=== PATIENT | female | born 1935 | race Hispanic/Latino ===

== ENCOUNTER 2017-04-29 12:01 | Outpatient (CLI) | payer MEDICARE ==
--- NOTE | 2017-04-29 13:07 | Cat Scan Report ---
CT HEAD WITHOUT CONTRAST: HISTORY: Headache. Compared to 01/01/13. Mild central volume loss is evident and is unchanged. Mild chronic periventricular white matter changes are noted. There is no evidence for hemorrhage, mass, extra-axial fluid collection or large area of acute ischemia. Ventricular size remains slightly prominent but symmetric. The basal cisterns are clear. The posterior fossa and contents are within normal limits. The mastoid air cells and visualized portions of the sinuses are normal. IMPRESSION: Mild volume loss and chronic white matter changes. No significant change since 2012.
== END 2017-04-29 12:02 | disposition home or self-care (01) ==
LOC: CT 12:01
PROVIDERS: ATTEND Internal Medicine
DX: R51 Headache (principal)
CPT/HCPCS: 70450

== ENCOUNTER 2017-06-19 15:33 | Emergency (ER) | payer MEDICARE ==
[2017-06-19 17:16] LABS: Basophils % (Auto) 0.8 % (0.0-1.8); Eosinophils % (Auto) 1.3 % (0.0-4.3); Hematocrit 38.2 % (30.3-42.9); Hemoglobin 12.9 gm/dl (10.1-14.3); Mean Corpuscular HGB Conc 34 % (30-34); Mean Corpuscular Hemoglobin 30 pg (28-32); Mean Corpuscular Volume 89 fl (79-97); Platelet Count 217 K/mm3 (140-440); Red Blood Count 4.29 M/mm3 (3.65-5.03)
[2017-06-19 17:28] LABS: Bilirubin,Urine NEG (Negative); Blood,Urine SM (Negative); Ketones,Urine NEG (Negative); Leukocyte Esterase,Urine NEG (Negative); Nitrite,Urine NEG (Negative); Protein,Urine <15 mg/dL mg/dL (Negative); Urobilinogen,Urine < 2.0 mg/dL (<2.0)
[2017-06-19 17:35] LABS: Alanine Aminotransferase 10 units/L (7-56); Albumin 3.9 g/dL (3.9-5); Albumin/Globulin Ratio 1.6 %; Alkaline Phosphatase 52 units/L (35-129); Anion Gap 18 mmol/L; BUN/Creatinine Ratio 11; Blood Urea Nitrogen 8 mg/dL (7-17); Calcium 8.6 mg/dL (8.4-10.2); Carbon Dioxide 23 mmol/L (22-30); Chloride 97.2 mmol/L (98-107); Glucose 90 mg/dL (65-100); Lipase 27 units/L (13-60); Potassium 4.1 mmol/L (3.6-5.0); Sodium 134 mmol/L (137-145); Total Protein 6.3 g/dL (6.3-8.2)
--- NOTE | 2017-06-19 18:02 | XRay Report ---
FINAL REPORT EXAM: XR ABDOMEN 2V HISTORY: Abd pain, constipation TECHNIQUE: Abdomen supine and upright PRIORS: None. FINDINGS: There is moderately increased amount of stool throughout the colon. No evidence of small bowel distention. No signs of free air. No abnormal calcifications are identified. IMPRESSION: Increased amount of stool throughout the colon No additional abnormality seen.
[2017-06-19] MEDS ORDERED: NACL ONE (18:26)
--- NOTE | 2017-06-19 18:52 | Emergency Department Report ---
HPI - General Chief Complaint: Abdominal Pain Time Seen by Provider: 06/19/17 16:15 - HPI HPI: This is a 81-year-old female presents to the emergency department with a complaint of concern for constipation and some mild abdominal discomfort. She has a more remote history of a previous bowel resection secondary to diverticulitis with subsequent colostomy reversal and anastomosis. The patient says that she has not had a satiating bowel movement in the past 7 -8 days despite using some laxatives and stool softeners. She denies any fever , dysuria, vaginal bleeding, back pain, vaginal discharge, nausea or vomiting. No recent travel or sick contacts at home. Patient lives at home alone. Her primary care physician is Dr. Carrera but she has not seen him regarding her symptoms. ED Past Medical Hx - Past Medical History Previous Medical History?: Yes Hx Hypertension: Yes - Surgical History Additional Surgical History: bowel resection with partial colon removal, colostomy placement and reversal - Social History Smoking Status: Never Smoker Substance Use Type: None - Medications Home Medications: Home Medications Medication Instructions Recorded Confirmed Last Taken Type Docusate Sodium [Colace] 100 mg PO BID PRN #20 capsule 06/19/17 Unknown Rx Magnesium Citrate [Citrate of 300 ml PO NOW #1 bottle 06/19/17 Unknown Rx Magnesia] ED Review of Systems ROS: Stated complaint: CONSTIPATION Other details as noted in HPI Comment: All other systems reviewed and negative Constitutional: denies: chills, fever Eyes: denies: eye pain, eye discharge, vision change ENT: denies: ear pain, throat pain Respiratory: denies: cough, shortness of breath, wheezing Cardiovascular: denies: chest pain, palpitations Gastrointestinal: abdominal pain, constipation. denies: nausea, vomiting Genitourinary: denies: urgency, dysuria, discharge Musculoskeletal: denies: back pain, joint swelling, arthralgia Skin: denies: rash, lesions Neurological: denies: headache, weakness, paresthesias Physical Exam - Physical Exam Vital Signs: Vital Signs 06/19/17 16:17 Temperature 99.1 F Pulse Rate 69 Blood Pressure 164/66 O2 Sat by Pulse 98 Oximetry Physical Exam: GENERAL: The patient is well-developed well-nourished. HENT: Normocephalic. Atraumatic. Patient has moist mucous membranes. EYES: Extraocular motions are intact. Pupils equal reactive to light bilaterally. NECK: Supple. Trachea is midline. CHEST/LUNGS: Clear to auscultation. There is no respiratory distress noted. HEART/CARDIOVASCULAR: Regular. There is no tachycardia. There is no gallop rub or murmur. ABDOMEN: Abdomen is soft. Mild generalized tenderness to palpation. No guarding or rebound tenderness. Patient has normal bowel sounds. SKIN: There is no rash. There is no edema. There is no diaphoresis. NEURO: The patient is awake, alert. The patient is cooperative. The patient has no focal neurologic deficits. The patient has normal speech. MUSCULOSKELETAL: There is no tenderness or deformity. There is no limitation range of motion. There is no evidence of acute injury. ED Course Vital Signs 06/19/17 16:17 Temperature 99.1 F Pulse Rate 69 Blood Pressure 164/66 O2 Sat by Pulse 98 Oximetry ED Medical Decision Making - Lab Data Result diagrams: 06/19/17 16:41 06/19/17 16:41 - Radiology Data Radiology results: report reviewed, image reviewed interpreted by me: Abdominal x-ray shows a moderate to large amount of stool throughout the intestines. No obvious signs of obstruction. PROCEDURE: CT ABDOMEN PELVIS W CON TECHNIQUE: Computerized axial tomography of the abdomen and pelvis was performed after the IV injection of iodinated nonionic contrast. HISTORY: Abd pain constipation COMPARISON: X-ray from same day FINDINGS: Mild hypoventilatory changes are suspect in the lower lungs. Liver and spleen display no abnormalities. Gallbladder has mild increased density that may be from excretion of contrast from prior study. It could be sludge. There is a 1 cm low-density structure with possible rim calcifications associated with the neck of the gallbladder. Is uncertain if this is in the gallbladder or adjacent to the gallbladder. No biliary ductal dilation is seen. Pancreas appears normal. Adrenal glands are normal in size. Minimal prominence of the distal abdominal aorta is seen measuring 2.1 cm in diameter. Small benign appearing cysts are suspected in the kidneys. Bladder appears normal. 2.4 cm calcified uterine fibroid is seen in the fundus of the uterus. Rectum is dilated to 7 cm with soft fecal material. Prominent constipation is seen in the ascending and transverse colon. No fecal impaction is seen. Normal appendix is seen. Shotty reactive lymph nodes are seen in the mesentery and retroperitoneum. No adnexal masses are seen. There is a wide neck right paraumbilical hernia containing fat. It is bilobed. Mild central compression deformity of L5 is less than 10 percent loss of height. This could be new or old. IMPRESSION: Prominent constipation is seen without fecal impaction. Periumbilical hernia are seen containing fat. Gallbladder appears mildly dense. This may be from excretion of contrast from prior study or sludge. 1 cm rim calcified, low-density structure is seen near the neck of the gallbladder. It is uncertain if this is within the gallbladder or adjacent to the gallbladder. Correlation with right upper quadrant ultrasound may be useful. Mild compression deformity of L5 may be new or old. Transcribed By: DEEPAK Dictated By: TERESSA KUMAR JR, MD Electronically Authenticated By: TERESSA KUMAR JR, MD Signed Date/Time: 06/19/17 1611 PROCEDURE: US ABDOMEN LIMITED TECHNIQUE: Real-time sonography was performed of the right upper quadrant of the abdomen with image documentation. CPT 43385 HISTORY: RUQ, abnormal CT COMPARISON: CT exam from the same day FINDINGS: Limited views of the pancreas display no abnormalities. Right kidney measures 11.3 cm in length and displays no abnormalities. No hepatic abnormality is seen. Gallbladder appears normal. Common bile duct is normal in size. IMPRESSION: No abnormalities are seen. 1 cm low-density structure near the neck of the gallbladder may be an exophytic cyst from the liver. This suspected calcification in the wall may be from adjacent vessel. Transcribed By: DEEPAK Dictated By: TERESSA KUMAR JR, MD Electronically Authenticated By: TERESSA KUMAR JR, MD Signed Date/Time: 06/19/17 1707 - Medical Decision Making 81-year-old female presents with some constipation and some generalized abdominal pain. She had not had a bowel movement in about 7 or 8 days. Labs were mostly unremarkable. Abdominal x-ray showed a large amount of stool throughout the intestine but no obvious signs of obstruction. A CT scan was done secondary to her age and complaint and it showed some increased stool volume without fecal impaction or obstruction. There was some mention of possible pericholecystic fluid without any obvious stone or signs of cholecystitis. However to be sure, an ultrasound was done of the right upper quadrant that did not show any obvious cholelithiasis and certainly no cholecystitis. She was given a soapsuds enema and had a moderate bowel movement with some relief. She will go home with some stool softeners and laxative encouragement to follow-up with her primary care physician. She will return to the ER with any worsening of her symptoms or any acute distress. - Differential Diagnosis constipation, bowel obstruction, diverticulitis, malignancy Critical Care Time: No Critical care attestation.: If time is entered above; I have spent that time in minutes in the direct care of this critically ill patient, excluding procedure time. ED Disposition Clinical Impression: Increased stool volume Abdominal pain Qualifiers: Abdominal location: unspecified location Qualified Code(s): R10.9 - Unspecified abdominal pain Disposition: TO HOME OR SELFCARE Is pt being admited?: No Condition: Stable Instructions: Constipation (ED), Abdominal Pain (ED) Additional Instructions: Please follow-up with your primary care physician in the next few days. Increase your oral rehydration. Take the constipation meds as prescribed. Return to the emergency Department with any worsening of your symptoms or any acute distress. Prescriptions: Docusate Sodium [Colace] 100 mg PO BID PRN #20 capsule PRN Reason: Constipation Magnesium Citrate [Citrate of Magnesia] 300 ml PO NOW #1 bottle Referrals: PRIMARY CARE, [Primary Care Provider] - [facility] Time of Disposition: 20:16
[2017-06-19 19:59] VITALS: BP 140/80
--- NOTE | 2017-06-19 20:15 | Cat Scan Report ---
FINAL REPORT PROCEDURE: CT ABDOMEN PELVIS W CON TECHNIQUE: Computerized axial tomography of the abdomen and pelvis was performed after the IV injection of iodinated nonionic contrast. HISTORY: Abd pain constipation COMPARISON: X-ray from same day FINDINGS: Mild hypoventilatory changes are suspect in the lower lungs. Liver and spleen display no abnormalities. Gallbladder has mild increased density that may be from excretion of contrast from prior study. It could be sludge. There is a 1 cm low-density structure with possible rim calcifications associated with the neck of the gallbladder. Is uncertain if this is in the gallbladder or adjacent to the gallbladder. No biliary ductal dilation is seen. Pancreas appears normal. Adrenal glands are normal in size. Minimal prominence of the distal abdominal aorta is seen measuring 2.1 cm in diameter. Small benign appearing cysts are suspected in the kidneys. Bladder appears normal. 2.4 cm calcified uterine fibroid is seen in the fundus of the uterus. Rectum is dilated to 7 cm with soft fecal material. Prominent constipation is seen in the ascending and transverse colon. No fecal impaction is seen. Normal appendix is seen. Shotty reactive lymph nodes are seen in the mesentery and retroperitoneum. No adnexal masses are seen. There is a wide neck right paraumbilical hernia containing fat. It is bilobed. Mild central compression deformity of L5 is less than 10 percent loss of height. This could be new or old. IMPRESSION: Prominent constipation is seen without fecal impaction. Periumbilical hernia are seen containing fat. Gallbladder appears mildly dense. This may be from excretion of contrast from prior study or sludge. 1 cm rim calcified, low-density structure is seen near the neck of the gallbladder. It is uncertain if this is within the gallbladder or adjacent to the gallbladder. Correlation with right upper quadrant ultrasound may be useful. Mild compression deformity of L5 may be new or old.
--- NOTE | 2017-06-19 21:17 | Ultrasound Report ---
FINAL REPORT PROCEDURE: US ABDOMEN LIMITED TECHNIQUE: Real-time sonography was performed of the right upper quadrant of the abdomen with image documentation. CPT 26372 HISTORY: RUQ, abnormal CT COMPARISON: CT exam from the same day FINDINGS: Limited views of the pancreas display no abnormalities. Right kidney measures 11.3 cm in length and displays no abnormalities. No hepatic abnormality is seen. Gallbladder appears normal. Common bile duct is normal in size. IMPRESSION: No abnormalities are seen. 1 cm low-density structure near the neck of the gallbladder may be an exophytic cyst from the liver. This suspected calcification in the wall may be from adjacent vessel.
== END 2017-06-19 22:06 | disposition home or self-care (01) ==
LOC: ED 15:33
DX: R19.5 Other fecal abnormalities (principal); I10 Essential (primary) hypertension; Z90.49 Acquired absence of other specified parts of digestive tract; Z88.8 Allergy status to other drugs, medicaments and biological substances
CPT/HCPCS: 36415; 74020; 74177; 76705; 80053; 81001; 83690; 85025; 99285; Q9967

== ENCOUNTER 2017-06-23 06:31 | Inpatient (IN) | payer MEDICARE ==
[2017-06-23] MEDS ORDERED: NACL 0.9% 500 ML 500 ML IV ONE (07:35)
--- NOTE | 2017-06-23 08:18 | XRay Report ---
AP CHEST: HISTORY: Sepsis AP view of the chest demonstrates a normal mediastinal and cardiac contour with clear lungs and normal bony and soft tissue structures. IMPRESSION: Unremarkable AP chest.
[2017-06-23 08:24] LABS: Basophils % (Auto) 0.8 % (0.0-1.8); Eosinophils % (Auto) 0.1 % (0.0-4.3); Hematocrit 39.4 % (30.3-42.9); Hemoglobin 13.2 gm/dl (10.1-14.3); Mean Corpuscular HGB Conc 33 % (30-34); Mean Corpuscular Hemoglobin 29 pg (28-32); Mean Corpuscular Volume 87 fl (79-97); Platelet Count 212 K/mm3 (140-440); Red Blood Count 4.54 M/mm3 (3.65-5.03); White Blood Count 8.1 K/mm3 (4.5-11.0)
[2017-06-23 08:26] LABS: Bilirubin,Urine NEG (Negative); Blood,Urine NEG (Negative); Ketones,Urine NEG (Negative); Leukocyte Esterase,Urine NEG (Negative); Mucus,Urine FEW /HPF; Nitrite,Urine NEG (Negative); Protein,Urine <15 mg/dL mg/dL (Negative); Urobilinogen,Urine < 2.0 mg/dL (<2.0)
[2017-06-23 08:34] LABS: INR 1.03 (0.87-1.13)
[2017-06-23 08:35] LABS: Partial Thromboplastin Time 27.6 Sec. (24.2-36.6)
[2017-06-23 08:38] LABS: Creatine Kinase MB 2.7 ng/mL (0.0-4.0)
[2017-06-23 08:40] LABS: Alanine Aminotransferase 16 units/L (7-56); Albumin 3.5 g/dL (3.9-5); Albumin/Globulin Ratio 1.2 %; Alkaline Phosphatase 47 units/L (35-129); Anion Gap 19 mmol/L; BUN/Creatinine Ratio 14; Bilirubin,Direct 0.2 mg/dL (0-0.2); Bilirubin,Indirect 0.5 mg/dL; Blood Urea Nitrogen 11 mg/dL (7-17); Calcium 8.5 mg/dL (8.4-10.2); Carbon Dioxide 24 mmol/L (22-30); Chloride 92.6 mmol/L (98-107); Creatine Kinase 291 units/L (30-135); Glucose 101 mg/dL (65-100); Potassium 4.2 mmol/L (3.6-5.0); Sodium 131 mmol/L (137-145); Total Protein 6.5 g/dL (6.3-8.2)
--- NOTE | 2017-06-23 08:44 | Cat Scan Report ---
CT HEAD WITHOUT CONTRAST: HISTORY: head trauma. TECHNIQUE: Sequential CT images without contrast. FINDINGS: Images obtained show bilateral prominence of the sulci and ventricles. There are no abnormal intra- or extra-axial blood or fluid collections. There are no focal masses or evidence of mass effect. The guzman white matter differentiation appears within normal limits. Regions of periventricular decreased attenuation are consistent with microangiopathic ischemic disease. The posterior fossa structures including the fourth ventricle, cerebellum, and brainstem appear normal. IMPRESSION: Evidence of atrophy and microangiopathic ischemic disease. No acute intracranial process noted. No change since 04/29/17.
--- NOTE | 2017-06-23 08:49 | Cat Scan Report ---
CT SCAN OF THE CERVICAL SPINE: HISTORY: Fall, pain. TECHNIQUE: Contiguous 1.25 mm axial images of the cervical spine were obtained. Sagittal and coronal reformatted images. FINDINGS: There is normal alignment of the cervical spine. The body, pedicles and posterior ligaments appear normal. No evidence of fracture or subluxation is seen. Minimal degenerative disc disease and facet arthropathy are noted at all levels. The spinal canal appears normal. The prevertebral soft tissues appear normal. IMPRESSION: Mild cervical spondylosis. No acute process is noted.
[2017-06-23] MEDS ORDERED: NACL 0.9% 1000 ML 1,000 ML IV ONE (09:34)
[2017-06-23] MEDS ORDERED: NORCO 5/325 PO ONE (09:34)
--- NOTE | 2017-06-23 09:34 | Emergency Department Report ---
ED General Adult HPI - General Chief complaint: Fall Stated complaint: FALL Time Seen by Provider: 06/23/17 07:33 Source: patient, family, EMS Mode of arrival: Stretcher Limitations: Physical Limitation - History of Present Illness Initial comments: Patient complains of generalized malaise and weakness and perhaps flulike prodrome for the past 2 days. She states that she did have a flu shot. She has not been coughing. She doesn't complain of chest or abdominal pain. She's had some sore throat and some generalized achiness. She states that she was going to the bathroom when she got weak and passed out. She has the back of her head and also complains of neck pain and some shoulder discomfort. She believes that she lost consciousness for approximately 3 minutes. She has returned to her baseline now. She presents with her daughter. -: Sudden, minutes(s) Location: head, neck Radiation: non-radiation Quality: aching Consistency: intermittent Improves with: none Worsens with: none Associated Symptoms: denies other symptoms, weakness Treatments Prior to Arrival: none - Related Data Previous Rx's Medication Instructions Recorded Last Taken Type Docusate Sodium [Colace] 100 mg PO BID PRN #20 capsule 06/19/17 Unknown Rx Magnesium Citrate [Citrate of 300 ml PO NOW #1 bottle 06/19/17 Unknown Rx Magnesia] Allergies Allergy/AdvReac Type Severity Reaction Status Date / Time lorazepam [From Ativan] Allergy Unknown Unknown Verified 06/19/17 16:48 ED Review of Systems ROS: Stated complaint: FALL Other details as noted in HPI Constitutional: weakness. denies: chills, fever Eyes: denies: eye pain, eye discharge, vision change ENT: denies: ear pain, throat pain Respiratory: cough (occasional only). denies: shortness of breath, wheezing Cardiovascular: syncope. denies: chest pain, palpitations Endocrine: no symptoms reported Gastrointestinal: denies: abdominal pain, nausea, diarrhea Genitourinary: denies: urgency, dysuria, discharge Musculoskeletal: denies: back pain, joint swelling, arthralgia Skin: denies: rash, lesions Neurological: denies: headache, weakness, paresthesias Psychiatric: denies: anxiety, depression Hematological/Lymphatic: denies: easy bleeding, easy bruising ED Past Medical Hx - Past Medical History Previous Medical History?: Yes Hx Hypertension: Yes Hx GERD: Yes - Surgical History Past Surgical History?: Yes Additional Surgical History: bowel resection with partial colon removal, colostomy placement and reversal - Social History Smoking Status: Never Smoker Substance Use Type: None - Medications Home Medications: Home Medications Medication Instructions Recorded Confirmed Last Taken Type Docusate Sodium [Colace] 100 mg PO BID PRN #20 capsule 06/19/17 Unknown Rx Magnesium Citrate [Citrate of 300 ml PO NOW #1 bottle 06/19/17 Unknown Rx Magnesia] ED Physical Exam - General Limitations: Physical Limitation General appearance: alert, in no apparent distress - Head Head exam: Present: normocephalic, other (soreness occipital scalp.) - Eye Eye exam: Present: normal appearance. Absent: scleral icterus - ENT ENT exam: Present: mucous membranes moist - Neck Neck exam: Present: normal inspection, tenderness (some generalized paravertebral discomfort no vertebral tenderness) - Respiratory Respiratory exam: Present: normal lung sounds bilaterally. Absent: respiratory distress - Cardiovascular Cardiovascular Exam: Present: regular rate, normal rhythm. Absent: systolic murmur, diastolic murmur, rubs, gallop - GI/Abdominal GI/Abdominal exam: Present: soft, normal bowel sounds. Absent: distended, tenderness, guarding, rebound, rigid - Extremities Exam Extremities exam: Present: normal inspection - Back Exam Back exam: Present: normal inspection. Absent: CVA tenderness (R), CVA tenderness (L), muscle spasm, paraspinal tenderness, vertebral tenderness - Neurological Exam Neurological exam: Present: alert, oriented X3, CN II-XII intact. Absent: motor sensory deficit - Psychiatric Psychiatric exam: Present: normal affect, normal mood - Skin Skin exam: Present: warm, dry, intact, normal color. Absent: rash ED Course Vital Signs 06/23/17 06/23/17 06/23/17 06:36 06:48 07:00 Temperature 99.4 F Pulse Rate 92 H 88 91 H Respiratory 15 19 15 Rate Blood Pressure 144/63 129/67 Blood Pressure [Left] O2 Sat by Pulse 96 96 97 Oximetry 06/23/17 06/23/17 06/23/17 07:08 07:28 09:58 Temperature 100.6 F H Pulse Rate 85 Respiratory 15 14 20 Rate Blood Pressure Blood Pressure 126/67 [Left] O2 Sat by Pulse 96 96 Oximetry - Reevaluation(s) Reevaluation #1: Patient remained stable in the emergency department. She was referred to the hospitalist service for evaluation of her syncopal episode. She had a low- grade fever but I didn't find any specific source infection. She appears to have a viral illness. She did have a lower white blood cell count with mildly increased bands. 06/23/17 11:09 ED Medical Decision Making - Lab Data Result diagrams: 06/23/17 07:59 06/23/17 07:59 Laboratory Results - last 24 hr 06/23/17 06/23/17 06/23/17 07:53 07:59 07:59 WBC RBC Hgb Hct MCV MCH MCHC RDW Plt Count Lymph % (Auto) [place] % (Auto) Eos % (Auto) Baso % (Auto) Lymph # [place] # Eos # Baso # Seg Neutrophils % Seg Neutrophils # PT INR APTT VBG pH 7.392 Sodium Potassium Chloride Carbon Dioxide Anion Gap BUN Creatinine Estimated GFR BUN/Creatinine Ratio Glucose Lactic Acid 1.30 Calcium Total Bilirubin Direct Bilirubin Indirect Bilirubin AST ALT Alkaline Phosphatase Total Creatine Kinase CK-MB (CK-2) CK-MB (CK-2) Rel Index Troponin T NT-Pro-B Natriuret Pep Total Protein Albumin Albumin/Globulin Ratio Urine Color Yellow Urine Turbidity Clear Urine pH 7.0 Ur Specific [place] 1.011 Urine Protein <15 mg/dl Urine Glucose (UA) Neg Urine Ketones Neg Urine Blood Neg Urine Nitrite Neg Urine Bilirubin Neg Urine Urobilinogen < 2.0 Ur Leukocyte Esterase Neg Urine WBC (Auto) 1.0 Urine RBC (Auto) 1.0 Amorphous Crystals Few Urine Mucus Few 06/23/17 06/23/17 06/23/17 07:59 07:59 07:59 WBC 8.1 RBC 4.54 Hgb 13.2 Hct 39.4 MCV 87 MCH 29 MCHC 33 RDW 14.0 Plt Count 212 Lymph % (Auto) 16.2 [place] % (Auto) 11.1 H Eos % (Auto) 0.1 Baso % (Auto) 0.8 Lymph # 1.3 [place] # 0.9 H Eos # 0.0 Baso # 0.1 Seg Neutrophils % 71.8 H Seg Neutrophils # 5.8 PT 14.0 INR 1.03 APTT 27.6 VBG pH Sodium 131 L Potassium 4.2 Chloride 92.6 L Carbon Dioxide 24 Anion Gap 19 BUN 11 Creatinine 0.8 Estimated GFR > 60 BUN/Creatinine Ratio 14 Glucose 101 H Lactic Acid Calcium 8.5 Total Bilirubin 0.70 Direct Bilirubin 0.2 Indirect Bilirubin 0.5 AST 33 ALT 16 Alkaline Phosphatase 47 Total Creatine Kinase 291 H CK-MB (CK-2) 2.7 CK-MB (CK-2) Rel Index 0.9 Troponin T < 0.010 NT-Pro-B Natriuret Pep 875.5 Total Protein 6.5 Albumin 3.5 L Albumin/Globulin Ratio 1.2 Urine Color Urine Turbidity Urine pH Ur Specific [place] Urine Protein Urine Glucose (UA) Urine Ketones Urine Blood Urine Nitrite Urine Bilirubin Urine Urobilinogen Ur Leukocyte Esterase Urine WBC (Auto) Urine RBC (Auto) Amorphous Crystals Urine Mucus - EKG Data -: EKG Interpreted by Me EKG shows normal: sinus rhythm, axis, intervals, QRS complexes, ST-T waves Rate: normal - EKG Data Interpretation: no acute changes - Radiology Data interpreted by me: CT head shows no acute process chest x-ray shows nothing abnormal Critical care attestation.: If time is entered above; I have spent that time in minutes in the direct care of this critically ill patient, excluding procedure time. ED Disposition Clinical Impression: Low grade fever, Bandemia Syncopal episodes Qualifiers: Syncope type: unspecified Qualified Code(s): R55 - Syncope and collapse Disposition: OP ADMIT IP TO THIS HOSP Is pt being admited?: Yes Does the pt Need Aspirin: Yes Condition: Stable Instructions: Syncope (ED) Referrals: PRIMARY CARE, [Primary Care Provider] - 3-5 Days Time of Disposition: 11:16
[2017-06-23] MEDS ORDERED: ZOFRAN IV PRN (10:56)
[2017-06-23] MEDS ORDERED: DULCOLAX PR PRN (10:56)
--- NOTE | 2017-06-23 11:10 | History and Physical Report ---
<DOMO CORTEZ - Last Filed: 06/23/17 15:38> History of Present Illness Date of examination: 06/23/17 Date of admission: 06/23/2017 Chief complaint: Syncope History of present illness: Patient is a 81-year-old female with past medical history for hypertension, hyperlipidemia, constipation and diverticulitis with subsequent colostomy reversal and anastomosis who presents to the emergency department with a complaint of syncope. Patient stated that this morning while going to the bathroom, shortly thereafter, she felt "dizzy" and found herself on the floor. She described the dizziness as "feeling like she was going to pass out." she doesnt remember what happened but thinks she lost consciousness for only a few seconds to minutes. No one was home at the time to witness it. She activated emergency alarm and the apartment security called EMS and brought her to emergency department. She had a headache after the episode, which she relates to hitting her head. Prior to losing consciousness, she did not experience chest pain, palpitations, or shortness of breath. she was not incontinent. No recent travel or sick contacts at home. Patient lives at home alone. Her primary care physician is Dr. Carrera. Past History Past Medical History: hypertension, hyperlipidemia, other (Depression and constipation ) Past Surgical History: Other (colostomy reversal and anastomosis) Social history: denies: smoking, alcohol abuse Family history: denies: diabetes, hypertension Medications and Allergies Allergies Allergy/AdvReac Type Severity Reaction Status Date / Time lorazepam [From Ativan] Allergy Unknown Unknown Verified 06/19/17 16:48 Home Medications Medication Instructions Recorded Confirmed Last Taken Type Docusate Sodium [Colace] 100 mg PO BID PRN #20 capsule 06/19/17 06/23/17 Unknown Rx Aspirin [Aspirin BABY CHEW TAB] 81 mg PO QDAY 06/23/17 06/23/17 Unknown History AtorvaSTATin [Lipitor] 20 mg PO QHS 06/23/17 06/23/17 Unknown History HYDROcodone/APAP 7.5-325 [[place] 1 each PO Q6HR PRN 06/23/17 06/23/17 Unknown History 7.5/325] Magnesium Citrate [Citrate of 400 ml PO NOW 06/23/17 06/23/17 Unknown History Magnesia] Magnesium Oxide [Magnesium] 400 mg PO QDAY 06/23/17 06/23/17 Unknown History Olanzapine [OLANZapine] 10 mg PO DAILY 06/23/17 06/23/17 Unknown History Omeprazole [Omeprazole] 40 mg PO BID 06/23/17 06/23/17 Unknown History Pantoprazole [Protonix TAB] 40 mg PO QDAY 06/23/17 06/23/17 Unknown History Riboflavin (Vitamin B2) 400 mg PO DAILY 06/23/17 06/23/17 Unknown History [Riboflavin] Sertraline [Zoloft] 100 mg PO DAILY 06/23/17 06/23/17 Unknown History Topiramate [Topamax] 25 mg PO BID 06/23/17 06/23/17 Unknown History cloNIDine [Catapres] 0.1 mg PO BID 06/23/17 06/23/17 Unknown History Active Meds: Active Medications Acetaminophen (Tylenol) 650 mg PO Q4H PRN PRN Reason: Pain MILD(1-3)/Fever >100.5/SARMIENTO Bisacodyl (Dulcolax) 10 mg [place] QDAY PRN PRN Reason: Constipation unrelieved by MOM Enoxaparin Sodium (Lovenox) 40 mg SUB-Q QDAY [facility]AN[facility] Sodium Chloride (Nacl 0.9% 1000 Ml) 1,000 mls @ 125 mls/hr IV ONCE ONE Stop: 06/23/17 17:33 Last Admin: 06/23/17 09:57 Dose: 125 mls/hr Sodium Chloride (Nacl 0.9% 1000 Ml) 1,000 mls @ 75 mls/hr IV DIRECT DELANO Magnesium Hydroxide (Milk Of Magnesia) 30 ml PO Q4H PRN PRN Reason: Constipation Morphine Sulfate (Morphine) 2 mg IV Q4H PRN PRN Reason: Pain, Moderate (4-6) Ondansetron HCl (Zofran) 4 mg IV Q8H PRN PRN Reason: N/V unrelieved by Reglan Review of Systems Constitutional: fever, chills, fatigue, weakness, malaise, no weight loss, no weight gain, no sweats, no night sweats Breasts: deferred Cardiovascular: syncope, lightheadedness, shortness of breath, dyspnea on exertion, no orthopnea, no palpitations Respiratory: no cough, no cough with sputum, no excessive sputum, no shortness of breath, no dyspnea on exertion Gastrointestinal: no vomiting, no diarrhea, no constipation, no change in bowel habits Genitourinary Female: no incomplete emptying, no urge incontinence, no mixed incontinence Rectal: no incontinence, no bleeding Musculoskeletal: no shooting arm pain, no arm numbness/tingling, no low back pain, no shooting leg pain Integumentary: no redness, no sores, no wounds Neurological: no weakness, no parathesias, no numbness Psychiatric: no memory loss, no change in sleep habits, no sleep disturbances Endocrine: no cold intolerance, no heat intolerance, no polyphagia, no polydipsia Hematologic/Lymphatic: no easy bruising, no easy bleeding Allergic/Immunologic: no urticaria, no allergic rhinitis Exam - Constitutional Vitals: Temp Pulse Resp BP Pulse Ox 100.6 F H 85 20 126/67 96 06/23/17 07:28 06/23/17 07:28 06/23/17 09:58 06/23/17 07:28 06/23/17 07:28 General appearance: Present: no acute distress - EENT Eyes: Present: PERRL ENT: hearing intact - Neck Neck: Present: supple - Respiratory Respiratory: bilateral: CTA - Cardiovascular Rhythm: regular Heart Sounds: Present: S1 & S2 - Abdominal General gastrointestinal: Present: soft, non-tender - Rectal Rectal Exam: deferred - Integumentary Integumentary: Present: clear, warm, dry - Musculoskeletal Musculoskeletal: strength equal bilaterally - Psychiatric Psychiatric: appropriate mood/affect - Neurologic Neurologic: moves all extremities - Allied Health Allied health notes reviewed: nursing Results - Labs CBC & Chem 7: 06/23/17 07:59 06/23/17 07:59 Labs: Laboratory Last Values WBC 8.1 K/mm3 (4.5-11.0) 06/23/17 07:59 RBC 4.54 M/mm3 (3.65-5.03) 06/23/17 07:59 Hgb 13.2 gm/dl (10.1-14.3) 06/23/17 07:59 Hct 39.4 % (30.3-42.9) 06/23/17 07:59 MCV 87 fl (79-97) 06/23/17 07:59 MCH 29 pg (28-32) 06/23/17 07:59 MCHC 33 % (30-34) 06/23/17 07:59 RDW 14.0 % (13.2-15.2) 06/23/17 07:59 Plt Count 212 K/mm3 (140-440) 06/23/17 07:59 Lymph % (Auto) 16.2 % (13.4-35.0) 06/23/17 07:59 [place] % (Auto) 11.1 % (0.0-7.3) H 06/23/17 07:59 Eos % (Auto) 0.1 % (0.0-4.3) 06/23/17 07:59 Baso % (Auto) 0.8 % (0.0-1.8) 06/23/17 07:59 Lymph # 1.3 K/mm3 (1.2-5.4) 06/23/17 07:59 [place] # 0.9 K/mm3 (0.0-0.8) H 06/23/17 07:59 Eos # 0.0 K/mm3 (0.0-0.4) 06/23/17 07:59 Baso # 0.1 K/mm3 (0.0-0.1) 06/23/17 07:59 Seg Neutrophils % 71.8 % (40.0-70.0) H 06/23/17 07:59 Seg Neutrophils # 5.8 K/mm3 (1.8-7.7) 06/23/17 07:59 PT 14.0 Sec. (12.2-14.9) 06/23/17 07:59 INR 1.03 (0.87-1.13) 06/23/17 07:59 APTT 27.6 Sec. (24.2-36.6) 06/23/17 07:59 VBG pH 7.392 (7.320-7.420) 06/23/17 07:59 Sodium 131 mmol/L (137-145) L 06/23/17 07:59 Potassium 4.2 mmol/L (3.6-5.0) 06/23/17 07:59 Chloride 92.6 mmol/L (98-107) L 06/23/17 07:59 Carbon Dioxide 24 mmol/L (22-30) 06/23/17 07:59 Anion Gap 19 mmol/L 06/23/17 07:59 BUN 11 mg/dL (7-17) 06/23/17 07:59 Creatinine 0.8 mg/dL (0.7-1.2) 06/23/17 07:59 Estimated GFR > 60 ml/min 06/23/17 07:59 BUN/Creatinine Ratio 14 % 06/23/17 07:59 Glucose 101 mg/dL (65-100) H 06/23/17 07:59 Lactic Acid 1.30 mmol/L (0.7-2.0) 06/23/17 07:59 Calcium 8.5 mg/dL (8.4-10.2) 06/23/17 07:59 Total Bilirubin 0.70 mg/dL (0.1-1.2) 06/23/17 07:59 Direct Bilirubin 0.2 mg/dL (0-0.2) 06/23/17 07:59 Indirect Bilirubin 0.5 mg/dL 06/23/17 07:59 AST 33 units/L (5-40) 06/23/17 07:59 ALT 16 units/L (7-56) 06/23/17 07:59 Alkaline Phosphatase 47 units/L (35-129) 06/23/17 07:59 Total Creatine Kinase 291 units/L (30-135) H 06/23/17 07:59 CK-MB (CK-2) 2.7 ng/mL (0.0-4.0) 06/23/17 07:59 CK-MB (CK-2) Rel Index 0.9 (0-4) 06/23/17 07:59 Troponin T < 0.010 ng/mL (0.00-0.029) 06/23/17 07:59 NT-Pro-B Natriuret Pep 875.5 pg/mL (0-900) 06/23/17 07:59 Total Protein 6.5 g/dL (6.3-8.2) 06/23/17 07:59 Albumin 3.5 g/dL (3.9-5) L 06/23/17 07:59 Albumin/Globulin Ratio 1.2 % 06/23/17 07:59 Urine Color Yellow (Yellow) 06/23/17 07:53 Urine Turbidity Clear (Clear) 06/23/17 07:53 Urine pH 7.0 (5.0-7.0) 06/23/17 07:53 Ur Specific [place] 1.011 (1.003-1.030) 06/23/17 07:53 Urine Protein <15 mg/dl mg/dL (Negative) 06/23/17 07:53 Urine Glucose (UA) Neg mg/dL (Negative) 06/23/17 07:53 Urine Ketones Neg mg/dL (Negative) 06/23/17 07:53 Urine Blood Neg (Negative) 06/23/17 07:53 Urine Nitrite Neg (Negative) 06/23/17 07:53 Urine Bilirubin Neg (Negative) 06/23/17 07:53 Urine Urobilinogen < 2.0 mg/dL (<2.0) 06/23/17 07:53 Ur Leukocyte Esterase Neg (Negative) 06/23/17 07:53 Urine WBC (Auto) 1.0 /HPF (0.0-6.0) 06/23/17 07:53 Urine RBC (Auto) 1.0 /HPF (0.0-6.0) 06/23/17 07:53 Amorphous Crystals Few 06/23/17 07:53 Urine Mucus Few /HPF 06/23/17 07:53 - Imaging and Cardiology Chest x-ray: image reviewed (unremarkable ) Assessment and Plan Assessment and plan: Patient is a 81-year-old female with past medical history for hypertension, hyperlipidemia, constipation and diverticulitis with subsequent colostomy reversal and anastomosis who presents to the emergency department with a complaint of syncope. Patient stated that this morning while going to the bathroom, shortly thereafter, she felt "dizzy" and found herself on the floor. Syncope Negative CT of the head Echocardiogram with EF 55%-60% Normal VL Carotid duplex bilateral Unremarkable MRI f the head EKG Sinus rhythm Negative cardiac enzymes and follow cardiac enzymes troponin Started on aspirin IV fluid hydration Neurology consulted Hyperlipidemia Resume antilipid Hyponatrimia Started on IV fluid that will correct it Closely monitor electrolytes Depression Resume home antidepressant Mental health consult Debility Physical therapy evaluation consulted GERD Resume Protonix DVT prophylaxis Heparin Advance Directives: Yes VTE prophylaxis?: Chemical Contraindication Mechanical VTE Prophylaxis: Treatment Not Indicated Plan of care discussed with patient/family: Yes <KAYLEIGH WARREN - Last Filed: 06/23/17 19:27> History of Present Illness Date of admission: 06/23/17 10:56 Medications and Allergies Active Meds: Active Medications Acetaminophen (Tylenol) 650 mg PO Q4H PRN PRN Reason: Pain MILD(1-3)/Fever >100.5/SARMIENTO Aspirin (Baby Aspirin) 81 mg PO QDAY [facility] Atorvastatin Calcium (Lipitor) 20 mg PO QHS [facility] Bisacodyl (Dulcolax) 10 mg [place] QDAY PRN PRN Reason: Constipation unrelieved by MOM Clonidine HCl (Catapres) 0.1 mg PO BID [facility] Docusate Sodium (Colace) 100 mg PO BID PRN PRN Reason: Constipation Enoxaparin Sodium (Lovenox) 40 mg SUB-Q QDAY [facility] Guaifenesin (Guaifenesin Dm Syrup) 10 ml PO Q3H PRN PRN Reason: Cough Sodium Chloride (Nacl 0.9% 1000 Ml) 1,000 mls @ 75 mls/hr IV DIRECT DELANO Last Admin: 06/23/17 16:43 Dose: 75 mls/hr Magnesium Hydroxide (Milk Of Magnesia) 30 ml PO Q4H PRN PRN Reason: Constipation Morphine Sulfate (Morphine) 2 mg IV Q4H PRN PRN Reason: Pain, Moderate (4-6) Last Admin: 06/23/17 16:42 Dose: 2 mg Olanzapine (Zyprexa) 10 mg PO DAILY [facility] Ondansetron HCl (Zofran) 4 mg IV Q8H PRN PRN Reason: N/V unrelieved by Reglan Pantoprazole Sodium (Protonix) 40 mg PO QDAY [facility] Sertraline HCl (Zoloft) 100 mg PO DAILY [facility] Topiramate (Topamax) 25 mg PO BID [facility] Exam - Constitutional Vitals: Temp Pulse Resp BP Pulse Ox 100.2 F H 74 20 137/55 92 06/23/17 14:20 06/23/17 14:20 06/23/17 14:20 06/23/17 14:20 06/23/17 14:20 Results - Labs CBC & Chem 7: 06/23/17 07:59 06/23/17 07:59 Labs: Laboratory Last Values WBC 8.1 K/mm3 (4.5-11.0) 06/23/17 07:59 RBC 4.54 M/mm3 (3.65-5.03) 06/23/17 07:59 Hgb 13.2 gm/dl (10.1-14.3) 06/23/17 07:59 Hct 39.4 % (30.3-42.9) 06/23/17 07:59 MCV 87 fl (79-97) 06/23/17 07:59 MCH 29 pg (28-32) 06/23/17 07:59 MCHC 33 % (30-34) 06/23/17 07:59 RDW 14.0 % (13.2-15.2) 06/23/17 07:59 Plt Count 212 K/mm3 (140-440) 06/23/17 07:59 Lymph % (Auto) 16.2 % (13.4-35.0) 06/23/17 07:59 [place] % (Auto) 11.1 % (0.0-7.3) H 06/23/17 07:59 Eos % (Auto) 0.1 % (0.0-4.3) 06/23/17 07:59 Baso % (Auto) 0.8 % (0.0-1.8) 06/23/17 07:59 Lymph # 1.3 K/mm3 (1.2-5.4) 06/23/17 07:59 [place] # 0.9 K/mm3 (0.0-0.8) H 06/23/17 07:59 Eos # 0.0 K/mm3 (0.0-0.4) 06/23/17 07:59 Baso # 0.1 K/mm3 (0.0-0.1) 06/23/17 07:59 Seg Neutrophils % 71.8 % (40.0-70.0) H 06/23/17 07:59 Seg Neutrophils # 5.8 K/mm3 (1.8-7.7) 06/23/17 07:59 PT 14.0 Sec. (12.2-14.9) 06/23/17 07:59 INR 1.03 (0.87-1.13) 06/23/17 07:59 APTT 27.6 Sec. (24.2-36.6) 06/23/17 07:59 VBG pH 7.392 (7.320-7.420) 06/23/17 07:59 Sodium 131 mmol/L (137-145) L 06/23/17 07:59 Potassium 4.2 mmol/L (3.6-5.0) 06/23/17 07:59 Chloride 92.6 mmol/L (98-107) L 06/23/17 07:59 Carbon Dioxide 24 mmol/L (22-30) 06/23/17 07:59 Anion Gap 19 mmol/L 06/23/17 07:59 BUN 11 mg/dL (7-17) 06/23/17 07:59 Creatinine 0.8 mg/dL (0.7-1.2) 06/23/17 07:59 Estimated GFR > 60 ml/min 06/23/17 07:59 BUN/Creatinine Ratio 14 % 06/23/17 07:59 Glucose 101 mg/dL (65-100) H 06/23/17 07:59 Lactic Acid 1.30 mmol/L (0.7-2.0) 06/23/17 07:59 Calcium 8.5 mg/dL (8.4-10.2) 06/23/17 07:59 Total Bilirubin 0.70 mg/dL (0.1-1.2) 06/23/17 07:59 Direct Bilirubin 0.2 mg/dL (0-0.2) 06/23/17 07:59 Indirect Bilirubin 0.5 mg/dL 06/23/17 07:59 AST 33 units/L (5-40) 06/23/17 07:59 ALT 16 units/L (7-56) 06/23/17 07:59 Alkaline Phosphatase 47 units/L (35-129) 06/23/17 07:59 Total Creatine Kinase 291 units/L (30-135) H 06/23/17 07:59 CK-MB (CK-2) 2.7 ng/mL (0.0-4.0) 06/23/17 07:59 CK-MB (CK-2) Rel Index 0.9 (0-4) 06/23/17 07:59 Troponin T < 0.010 ng/mL (0.00-0.029) 06/23/17 07:59 NT-Pro-B Natriuret Pep 875.5 pg/mL (0-900) 06/23/17 07:59 Total Protein 6.5 g/dL (6.3-8.2) 06/23/17 07:59 Albumin 3.5 g/dL (3.9-5) L 06/23/17 07:59 Albumin/Globulin Ratio 1.2 % 06/23/17 07:59 Urine Color Yellow (Yellow) 06/23/17 07:53 Urine Turbidity Clear (Clear) 06/23/17 07:53 Urine pH 7.0 (5.0-7.0) 06/23/17 07:53 Ur Specific [place] 1.011 (1.003-1.030) 06/23/17 07:53 Urine Protein <15 mg/dl mg/dL (Negative) 06/23/17 07:53 Urine Glucose (UA) Neg mg/dL (Negative) 06/23/17 07:53 Urine Ketones Neg mg/dL (Negative) 06/23/17 07:53 Urine Blood Neg (Negative) 06/23/17 07:53 Urine Nitrite Neg (Negative) 06/23/17 07:53 Urine Bilirubin Neg (Negative) 06/23/17 07:53 Urine Urobilinogen < 2.0 mg/dL (<2.0) 06/23/17 07:53 Ur Leukocyte Esterase Neg (Negative) 06/23/17 07:53 Urine WBC (Auto) 1.0 /HPF (0.0-6.0) 06/23/17 07:53 Urine RBC (Auto) 1.0 /HPF (0.0-6.0) 06/23/17 07:53 Amorphous Crystals Few 06/23/17 07:53 Urine Mucus Few /HPF 06/23/17 07:53 Assessment and Plan Assessment and plan: I saw and evaluated the patient. I agree with the findings and the plan of care as documented in the Nurse Practitioner's~note, with the following corrections and additions. Patient admitted with syncope and fall, probably vasovagal, autonomic dysfunction Workup is negative so far CT cervical spine; mild spondylosis no acute abnormality CT head without contrast ;Atrophy microangiopathic ischemic disease no acute abnormality Carotid Doppler; no hemodynamically significant stenosis Echocardiogram; LV ejection fraction 60-65%. Mild pulmonary hypertension Chest x-ray; normal study Advised physical therapy occupational therapy Fall precautions DC planning per case management Patient lives alone but the risk of recurrent falls, possible subacute rehabilitation vs SNF placement
[2017-06-23] MEDS ORDERED: BABY ASPIRIN PO ONE (11:17)
[2017-06-23] MEDS ORDERED: BABY ASPIRIN ONE (11:42)
[2017-06-23] MEDS ORDERED: GUAIFENESIN DM SYRUP PO ONE (16:30)
[2017-06-23] MEDS: MORPHINE IV PRN ×2 (16:42→23:59)
[2017-06-23] MEDS: NACL 0.9% 1000 ML 1,000 ML IV SCH (16:43)
[2017-06-23] MEDS: TOPAMAX PO SCH (22:54)
[2017-06-23] MEDS: CATAPRES PO SCH (22:55)
[2017-06-24 05:04] LABS: Eosinophils % (Auto) 0.3 % (0.0-4.3); Hematocrit 34.7 % (30.3-42.9); Hemoglobin 11.8 gm/dl (10.1-14.3); Mean Corpuscular HGB Conc 34 % (30-34); Mean Corpuscular Hemoglobin 30 pg (28-32); Mean Corpuscular Volume 89 fl (79-97); Platelet Count 153 K/mm3 (140-440); Red Blood Count 3.92 M/mm3 (3.65-5.03); Red Cell Distribution Width 14.1 % (13.2-15.2); White Blood Count 5.1 K/mm3 (4.5-11.0)
[2017-06-24] MEDS: TYLENOL PO PRN (05:10)
[2017-06-24 05:25] LABS: Anion Gap 16 mmol/L; BUN/Creatinine Ratio 16; Blood Urea Nitrogen 11 mg/dL (7-17); Carbon Dioxide 20 mmol/L (22-30); Chloride 98.8 mmol/L (98-107); Cholesterol 85 mg/dL (50-199); Glucose 89 mg/dL (65-100); HDL Cholesterol 32 mg/dL (40-59); LDL Cholesterol,Direct 38 mg/dL (50-130); Potassium 3.8 mmol/L (3.6-5.0); Sodium 131 mmol/L (137-145); Triglycerides 75 mg/dL (2-149)
--- NOTE | 2017-06-24 08:21 | Progress Note ---
<DOMO CORTEZ - Last Filed: 06/24/17 12:57> Assessment and Plan Assessment and plan: Patient is a 81-year-old female with past medical history for hypertension, hyperlipidemia, constipation and diverticulitis with subsequent colostomy reversal and anastomosis who presents to the emergency department with a complaint of syncope. Patient stated that this morning while going to the bathroom, shortly thereafter, she felt "dizzy" and found herself on the floor. Syncope Negative CT of the head and cervical no acute intracranial abnormality Chest xray WNL Echocardiogram with LV EF 55%-60% with mild pulmonary hypertension. VL Carotid duplex bilateral no evidence of stenosis Lab works unremarkable EKG Sinus rhythm Negative cardiac enzymes Continue IV fluid hydration Neurology consulted Hyperlipidemia Resume antilipid Hyponatrimia Started on IV fluid that will correct it Closely monitor electrolytes Depression Resume home antidepressant Mental health consult Debility/Fall Recurrent fall Patient will benefit from SNF or subacute rehabilitation due to recurrent fall. she lives alone Physical therapy evaluation consulted GERD Resume Protonix DVT prophylaxis Heparin History Interval history: Patient denies chest pain, shortness of breath or any discomfort Hospitalist Physical - Constitutional Vitals: Temp Pulse Resp BP Pulse Ox 98.8 F 72 18 125/51 93 06/24/17 07:13 06/24/17 07:13 06/24/17 07:13 06/24/17 07:13 06/24/17 07:13 General appearance: Present: no acute distress - EENT Eyes: Present: PERRL ENT: hearing intact - Neck Neck: Present: supple - Respiratory Respiratory effort: normal Respiratory: bilateral: CTA - Cardiovascular Rhythm: regular Heart Sounds: Present: S1 & S2 - Abdominal General gastrointestinal: soft, non-tender - Integumentary Integumentary: Present: clear, warm, dry - Psychiatric Psychiatric: depressed, other (flat affect) - Neurologic Neurologic: moves all extremities - Allied Health Allied health notes reviewed: nursing Results - Labs CBC & Chem 7: 06/24/17 03:58 06/24/17 03:58 Labs: Laboratory Last Values WBC 5.1 K/mm3 (4.5-11.0) 06/24/17 03:58 RBC 3.92 M/mm3 (3.65-5.03) 06/24/17 03:58 Hgb 11.8 gm/dl (10.1-14.3) 06/24/17 03:58 Hct 34.7 % (30.3-42.9) 06/24/17 03:58 MCV 89 fl (79-97) 06/24/17 03:58 MCH 30 pg (28-32) 06/24/17 03:58 MCHC 34 % (30-34) 06/24/17 03:58 RDW 14.1 % (13.2-15.2) 06/24/17 03:58 Plt Count 153 K/mm3 (140-440) 06/24/17 03:58 Lymph % (Auto) 23.9 % (13.4-35.0) 06/24/17 03:58 [place] % (Auto) 10.5 % (0.0-7.3) H 06/24/17 03:58 Eos % (Auto) 0.3 % (0.0-4.3) 06/24/17 03:58 Baso % (Auto) 1.0 % (0.0-1.8) 06/24/17 03:58 Lymph # 1.2 K/mm3 (1.2-5.4) 06/24/17 03:58 [place] # 0.5 K/mm3 (0.0-0.8) 06/24/17 03:58 Eos # 0.0 K/mm3 (0.0-0.4) 06/24/17 03:58 Baso # 0.1 K/mm3 (0.0-0.1) 06/24/17 03:58 Seg Neutrophils % 64.3 % (40.0-70.0) 06/24/17 03:58 Seg Neutrophils # 3.3 K/mm3 (1.8-7.7) 06/24/17 03:58 PT 14.0 Sec. (12.2-14.9) 06/23/17 07:59 INR 1.03 (0.87-1.13) 06/23/17 07:59 APTT 27.6 Sec. (24.2-36.6) 06/23/17 07:59 VBG pH 7.392 (7.320-7.420) 06/23/17 07:59 Sodium 131 mmol/L (137-145) L 06/24/17 03:58 Potassium 3.8 mmol/L (3.6-5.0) 06/24/17 03:58 Chloride 98.8 mmol/L (98-107) 06/24/17 03:58 Carbon Dioxide 20 mmol/L (22-30) L 06/24/17 03:58 Anion Gap 16 mmol/L 06/24/17 03:58 BUN 11 mg/dL (7-17) 06/24/17 03:58 Creatinine 0.7 mg/dL (0.7-1.2) 06/24/17 03:58 Estimated GFR > 60 ml/min 06/24/17 03:58 BUN/Creatinine Ratio 16 % 06/24/17 03:58 Glucose 89 mg/dL (65-100) 06/24/17 03:58 Lactic Acid 1.30 mmol/L (0.7-2.0) 06/23/17 07:59 Calcium 7.0 mg/dL (8.4-10.2) L D 06/24/17 03:58 Total Bilirubin 0.70 mg/dL (0.1-1.2) 06/23/17 07:59 Direct Bilirubin 0.2 mg/dL (0-0.2) 06/23/17 07:59 Indirect Bilirubin 0.5 mg/dL 06/23/17 07:59 AST 33 units/L (5-40) 06/23/17 07:59 ALT 16 units/L (7-56) 06/23/17 07:59 Alkaline Phosphatase 47 units/L (35-129) 06/23/17 07:59 Total Creatine Kinase 291 units/L (30-135) H 06/23/17 07:59 CK-MB (CK-2) 2.7 ng/mL (0.0-4.0) 06/23/17 07:59 CK-MB (CK-2) Rel Index 0.9 (0-4) 06/23/17 07:59 Troponin T < 0.010 ng/mL (0.00-0.029) 06/23/17 07:59 NT-Pro-B Natriuret Pep 875.5 pg/mL (0-900) 06/23/17 07:59 Total Protein 6.5 g/dL (6.3-8.2) 06/23/17 07:59 Albumin 3.5 g/dL (3.9-5) L 06/23/17 07:59 Albumin/Globulin Ratio 1.2 % 06/23/17 07:59 Triglycerides 75 mg/dL (2-149) 06/24/17 03:58 Cholesterol 85 mg/dL (50-199) 06/24/17 03:58 LDL Cholesterol Direct 38 mg/dL (50-130) L 06/24/17 03:58 HDL Cholesterol 32 mg/dL (40-59) L 06/24/17 03:58 Cholesterol/HDL Ratio 2.65 % 06/24/17 03:58 Urine Color Yellow (Yellow) 06/23/17 07:53 Urine Turbidity Clear (Clear) 06/23/17 07:53 Urine pH 7.0 (5.0-7.0) 06/23/17 07:53 Ur Specific [place] 1.011 (1.003-1.030) 06/23/17 07:53 Urine Protein <15 mg/dl mg/dL (Negative) 06/23/17 07:53 Urine Glucose (UA) Neg mg/dL (Negative) 06/23/17 07:53 Urine Ketones Neg mg/dL (Negative) 06/23/17 07:53 Urine Blood Neg (Negative) 06/23/17 07:53 Urine Nitrite Neg (Negative) 06/23/17 07:53 Urine Bilirubin Neg (Negative) 06/23/17 07:53 Urine Urobilinogen < 2.0 mg/dL (<2.0) 06/23/17 07:53 Ur Leukocyte Esterase Neg (Negative) 06/23/17 07:53 Urine WBC (Auto) 1.0 /HPF (0.0-6.0) 06/23/17 07:53 Urine RBC (Auto) 1.0 /HPF (0.0-6.0) 06/23/17 07:53 Amorphous Crystals Few 06/23/17 07:53 Urine Mucus Few /HPF 06/23/17 07:53 <KAYLEIGH WARREN - Last Filed: 06/24/17 16:50> Assessment and Plan Assessment and plan: Discussed with case management Patient lives alone recurrent falls, possible subacute rehabilitation versus [facility] facility Continue current management Hospitalist Physical - Constitutional Vitals: Temp Pulse Resp BP Pulse Ox 99.7 F H 78 18 144/52 92 06/24/17 15:33 06/24/17 15:33 06/24/17 07:13 12/01/17 15:33 06/24/17 15:33 Results - Labs CBC & Chem 7: 06/24/17 03:58 06/24/17 03:58 Labs: Laboratory Last Values WBC 5.1 K/mm3 (4.5-11.0) 06/24/17 03:58 RBC 3.92 M/mm3 (3.65-5.03) 06/24/17 03:58 Hgb 11.8 gm/dl (10.1-14.3) 06/24/17 03:58 Hct 34.7 % (30.3-42.9) 06/24/17 03:58 MCV 89 fl (79-97) 06/24/17 03:58 MCH 30 pg (28-32) 06/24/17 03:58 MCHC 34 % (30-34) 06/24/17 03:58 RDW 14.1 % (13.2-15.2) 06/24/17 03:58 Plt Count 153 K/mm3 (140-440) 06/24/17 03:58 Lymph % (Auto) 23.9 % (13.4-35.0) 06/24/17 03:58 [place] % (Auto) 10.5 % (0.0-7.3) H 06/24/17 03:58 Eos % (Auto) 0.3 % (0.0-4.3) 06/24/17 03:58 Baso % (Auto) 1.0 % (0.0-1.8) 06/24/17 03:58 Lymph # 1.2 K/mm3 (1.2-5.4) 06/24/17 03:58 [place] # 0.5 K/mm3 (0.0-0.8) 06/24/17 03:58 Eos # 0.0 K/mm3 (0.0-0.4) 06/24/17 03:58 Baso # 0.1 K/mm3 (0.0-0.1) 06/24/17 03:58 Seg Neutrophils % 64.3 % (40.0-70.0) 06/24/17 03:58 Seg Neutrophils # 3.3 K/mm3 (1.8-7.7) 06/24/17 03:58 PT 14.0 Sec. (12.2-14.9) 06/23/17 07:59 INR 1.03 (0.87-1.13) 06/23/17 07:59 APTT 27.6 Sec. (24.2-36.6) 06/23/17 07:59 VBG pH 7.392 (7.320-7.420) 06/23/17 07:59 Sodium 131 mmol/L (137-145) L 06/24/17 03:58 Potassium 3.8 mmol/L (3.6-5.0) 06/24/17 03:58 Chloride 98.8 mmol/L (98-107) 06/24/17 03:58 Carbon Dioxide 20 mmol/L (22-30) L 06/24/17 03:58 Anion Gap 16 mmol/L 06/24/17 03:58 BUN 11 mg/dL (7-17) 06/24/17 03:58 Creatinine 0.7 mg/dL (0.7-1.2) 06/24/17 03:58 Estimated GFR > 60 ml/min 06/24/17 03:58 BUN/Creatinine Ratio 16 % 06/24/17 03:58 Glucose 89 mg/dL (65-100) 06/24/17 03:58 Lactic Acid 1.30 mmol/L (0.7-2.0) 06/23/17 07:59 Calcium 7.0 mg/dL (8.4-10.2) L D 06/24/17 03:58 Total Bilirubin 0.70 mg/dL (0.1-1.2) 06/23/17 07:59 Direct Bilirubin 0.2 mg/dL (0-0.2) 06/23/17 07:59 Indirect Bilirubin 0.5 mg/dL 06/23/17 07:59 AST 33 units/L (5-40) 06/23/17 07:59 ALT 16 units/L (7-56) 06/23/17 07:59 Alkaline Phosphatase 47 units/L (35-129) 06/23/17 07:59 Total Creatine Kinase 291 units/L (30-135) H 06/23/17 07:59 CK-MB (CK-2) 2.7 ng/mL (0.0-4.0) 06/23/17 07:59 CK-MB (CK-2) Rel Index 0.9 (0-4) 06/23/17 07:59 Troponin T < 0.010 ng/mL (0.00-0.029) 06/23/17 07:59 NT-Pro-B Natriuret Pep 875.5 pg/mL (0-900) 06/23/17 07:59 Total Protein 6.5 g/dL (6.3-8.2) 06/23/17 07:59 Albumin 3.5 g/dL (3.9-5) L 06/23/17 07:59 Albumin/Globulin Ratio 1.2 % 06/23/17 07:59 Triglycerides 75 mg/dL (2-149) 06/24/17 03:58 Cholesterol 85 mg/dL (50-199) 06/24/17 03:58 LDL Cholesterol Direct 38 mg/dL (50-130) L 06/24/17 03:58 HDL Cholesterol 32 mg/dL (40-59) L 06/24/17 03:58 Cholesterol/HDL Ratio 2.65 % 06/24/17 03:58 Urine Color Yellow (Yellow) 06/23/17 07:53 Urine Turbidity Clear (Clear) 06/23/17 07:53 Urine pH 7.0 (5.0-7.0) 06/23/17 07:53 Ur Specific [place] 1.011 (1.003-1.030) 06/23/17 07:53 Urine Protein <15 mg/dl mg/dL (Negative) 06/23/17 07:53 Urine Glucose (UA) Neg mg/dL (Negative) 06/23/17 07:53 Urine Ketones Neg mg/dL (Negative) 06/23/17 07:53 Urine Blood Neg (Negative) 06/23/17 07:53 Urine Nitrite Neg (Negative) 06/23/17 07:53 Urine Bilirubin Neg (Negative) 06/23/17 07:53 Urine Urobilinogen < 2.0 mg/dL (<2.0) 06/23/17 07:53 Ur Leukocyte Esterase Neg (Negative) 06/23/17 07:53 Urine WBC (Auto) 1.0 /HPF (0.0-6.0) 06/23/17 07:53 Urine RBC (Auto) 1.0 /HPF (0.0-6.0) 06/23/17 07:53 Amorphous Crystals Few 06/23/17 07:53 Urine Mucus Few /HPF 06/23/17 07:53
[2017-06-24] MEDS: LOVENOX SUB-Q SCH (10:26)
[2017-06-24] MEDS: TOPAMAX PO SCH ×2 (10:28→21:31)
[2017-06-24] MEDS: ZOLOFT PO SCH (10:29)
[2017-06-24] MEDS: PROTONIX PO SCH (10:29)
[2017-06-24] MEDS: BABY ASPIRIN PO SCH (10:29)
[2017-06-24] MEDS: CATAPRES PO SCH ×2 (10:29→21:30)
[2017-06-24] MEDS: NACL 0.9% 1000 ML 1,000 ML IV SCH (13:04)
--- NOTE | 2017-06-24 13:59 | Consultation ---
History of Present Illness - Reason for Consult Consult date: 06/24/17 Reason for consult: Mental Health Evaluation Requesting physician: DOMO CORTEZ - Chief Complaint Chief complaint: "Hi" - History of Present Psychiatric Illness Patient is a 81-year-old female with past medical history for hypertension, hyperlipidemia, constipation and diverticulitis with subsequent colostomy reversal and anastomosis who presents to the emergency department with a complaint of syncope. Today patient is calm and cooperative during the assessment. Per collateral information from the patient's niece, Analy Juarez who was at the bedside, she stated that her aunt has been isolating herself, staying in the bed longer, and not communicating with other occupants at her residence like she normally does. Also, she stated that her aunt's brother in February 2017. Per the patient, she stated that she feels sad and lonesome since her brother because they had a "good" relationship. The patient was able to recall 2/3 numbers (3,5,11) within 5 mins. She was able to ID the current/past [place] President, along with stating her . She denies SI/HI's and AVH's. She admit to sleeping more, but denies a poor appetite. She denies recreational drug use and alcohol consumption (etoh). Medications and Allergies Allergies Allergy/AdvReac Type Severity Reaction Status Date / Time lorazepam [From Ativan] Allergy Unknown Unknown Verified 06/19/17 16:48 Home Medications Medication Instructions Recorded Confirmed Last Taken Type Docusate Sodium [Colace] 100 mg PO BID PRN #20 capsule 06/19/17 06/23/17 Unknown Rx Aspirin [Aspirin BABY CHEW TAB] 81 mg PO QDAY 06/23/17 06/23/17 Unknown History AtorvaSTATin [Lipitor] 20 mg PO QHS 06/23/17 06/23/17 Unknown History HYDROcodone/APAP 7.5-325 [[place] 1 each PO Q6HR PRN 06/23/17 06/23/17 Unknown History 7.5/325] Magnesium Citrate [Citrate of 400 ml PO NOW 06/23/17 06/23/17 Unknown History Magnesia] Magnesium Oxide [Magnesium] 400 mg PO QDAY 06/23/17 06/23/17 Unknown History Olanzapine [OLANZapine] 10 mg PO DAILY 06/23/17 06/23/17 Unknown History Omeprazole [Omeprazole] 40 mg PO BID 06/23/17 06/23/17 Unknown History Pantoprazole [Protonix TAB] 40 mg PO QDAY 06/23/17 06/23/17 Unknown History Riboflavin (Vitamin B2) 400 mg PO DAILY 06/23/17 06/23/17 Unknown History [Riboflavin] Sertraline [Zoloft] 100 mg PO DAILY 06/23/17 06/23/17 Unknown History Topiramate [Topamax] 25 mg PO BID 06/23/17 06/23/17 Unknown History cloNIDine [Catapres] 0.1 mg PO BID 06/23/17 06/23/17 Unknown History Active Meds: Active Medications Acetaminophen (Tylenol) 650 mg PO Q4H PRN PRN Reason: Pain MILD(1-3)/Fever >100.5/SARMIENTO Last Admin: 06/24/17 05:10 Dose: 650 mg Aspirin (Baby Aspirin) 81 mg PO QDAY [facility] Last Admin: 06/24/17 10:29 Dose: 81 mg Atorvastatin Calcium (Lipitor) 20 mg PO QHS [facility] Last Admin: 06/23/17 22:54 Dose: 20 mg Bisacodyl (Dulcolax) 10 mg [place] QDAY PRN PRN Reason: Constipation unrelieved by MOM Clonidine HCl (Catapres) 0.1 mg PO BID [facility] Last Admin: 06/24/17 10:29 Dose: 0.1 mg Docusate Sodium (Colace) 100 mg PO BID PRN PRN Reason: Constipation Enoxaparin Sodium (Lovenox) 40 mg SUB-Q QDAY [facility] Last Admin: 06/24/17 10:26 Dose: 40 mg Guaifenesin (Guaifenesin Dm Syrup) 10 ml PO Q3H PRN PRN Reason: Cough Sodium Chloride (Nacl 0.9% 1000 Ml) 1,000 mls @ 75 mls/hr IV DIRECT [facility] Last Admin: 06/24/17 13:04 Dose: 75 mls/hr Magnesium Hydroxide (Milk Of Magnesia) 30 ml PO Q4H PRN PRN Reason: Constipation Morphine Sulfate (Morphine) 2 mg IV Q4H PRN PRN Reason: Pain, Moderate (4-6) Last Admin: 06/23/17 23:59 Dose: 2 mg Olanzapine (Zyprexa) 10 mg PO DAILY [facility] Last Admin: 06/24/17 10:27 Dose: 10 mg Ondansetron HCl (Zofran) 4 mg IV Q8H PRN PRN Reason: N/V unrelieved by Reglan Pantoprazole Sodium (Protonix) 40 mg PO QDAY [facility] Last Admin: 06/24/17 10:29 Dose: 40 mg Sertraline HCl (Zoloft) 100 mg PO DAILY [facility] Last Admin: 06/24/17 10:29 Dose: 100 mg Topiramate (Topamax) 25 mg PO BID [facility] Last Admin: 06/24/17 10:28 Dose: 25 mg Past psychiatric history - Past Medical History Past Medical History: GERD, hypertension Past Surgical History: bowel surgery, Other (Colostomy and than a reversal) - past Psychiatric treatment and history psychiatric treatment history: Seen a psychiatrist in the past (outpatient). No fam psy hx. - Social History Social history: Lives alone Mental Status Exam - Vital signs Last Vital Signs Temp 98.8 F 06/24/17 07:13 Pulse 73 06/24/17 10:29 Resp 18 06/24/17 07:13 BP 125/51 06/24/17 10:29 Pulse Ox 93 06/24/17 07:13 - Exam Narrative exam: MSE: Appearance: calm Behavior: eyes closed Speech: regular rate and tone Mood: "okay" Affect: flat Thought Process: circumstantial Thought Content: denies SI/HI's and AVH's Motor Activity: lying in bed Cognition: A/O x3 Insight: fair Judgment: fair Results Result Diagrams: 06/24/17 03:58 06/24/17 03:58 Abnormal lab results 06/24/17 06/24/17 Range/Units 03:58 03:58 [place] % (Auto) 10.5 H (0.0-7.3) % Sodium 131 L (137-145) mmol/L Carbon Dioxide 20 L (22-30) mmol/L Calcium 7.0 L D (8.4-10.2) mg/dL LDL Cholesterol Direct 38 L (50-130) mg/dL HDL Cholesterol 32 L (40-59) mg/dL All other labs normal. Assessment and Plan Assessment and plan: Impression: MDD, moderate type. Today patient is calm and cooperative during the assessment. Patient is grieving the of her sibling. NA 131. DDx: Adjustment DO Recommendation/Plan: Patient's medication is managed by her PCP Dr. Carrera per her niece. Continue Zoloft (home medication) 100 mg PO daily for depression and Topamax 25 mg PO BID for migraine headaches. Will contact Dr Carrera to discuss her home medication Zyprexa. Discussed with patient and niece possible suicidality/medication induced lopez reference Zoloft. Monitor NA levels.
--- NOTE | 2017-06-24 15:36 | Magnetic Resonance Report ---
MRI OF THE BRAIN WITHOUT CONTRAST: HISTORY: Syncope PROCEDURE: Multiplanar, multisequence MR imaging of the brain without IV contrast was performed. FINDINGS: Mild diffuse volume loss is identified. Mild nonspecific chronic periventricular white matter changes are also identified. The remaining brain parenchyma demonstrates normal signal. No evidence for acute ischemia, hemorrhage or mass. No chronic infarct or extra-axial fluid collection. The midline structures are central. The basal cisterns are patent. Normal ventricular size. The orbital cavities and sella turcica demonstrate no abnormality. The visualized paranasal sinuses and mastoid air cells are well aerated. IMPRESSION: Mild volume loss and chronic white matter changes. No acute intracranial process.
--- NOTE | 2017-06-24 15:53 | Consultation ---
History of Present Illness Consult date: 06/24/17 History of present illness: see the ED record on a number of medications ie zyprexa/ topamax etc for mood stabilization suspect syncope could have been seizure plan further w/u Past History Past Medical History: GERD, hypertension Past Surgical History: bowel surgery, Other (Colostomy and than a reversal) Social history: Lives alone Family history: denies: diabetes, hypertension Medications and Allergies Allergies Allergy/AdvReac Type Severity Reaction Status Date / Time lorazepam [From Ativan] Allergy Unknown Unknown Verified 06/19/17 16:48 Home Medications Medication Instructions Recorded Confirmed Last Taken Type Docusate Sodium [Colace] 100 mg PO BID PRN #20 capsule 06/19/17 06/23/17 Unknown Rx Aspirin [Aspirin BABY CHEW TAB] 81 mg PO QDAY 06/23/17 06/23/17 Unknown History AtorvaSTATin [Lipitor] 20 mg PO QHS 06/23/17 06/23/17 Unknown History HYDROcodone/APAP 7.5-325 [[place] 1 each PO Q6HR PRN 06/23/17 06/23/17 Unknown History 7.5/325] Magnesium Citrate [Citrate of 400 ml PO NOW 06/23/17 06/23/17 Unknown History Magnesia] Magnesium Oxide [Magnesium] 400 mg PO QDAY 06/23/17 06/23/17 Unknown History Olanzapine [OLANZapine] 10 mg PO DAILY 06/23/17 06/23/17 Unknown History Omeprazole [Omeprazole] 40 mg PO BID 06/23/17 06/23/17 Unknown History Pantoprazole [Protonix TAB] 40 mg PO QDAY 06/23/17 06/23/17 Unknown History Riboflavin (Vitamin B2) 400 mg PO DAILY 06/23/17 06/23/17 Unknown History [Riboflavin] Sertraline [Zoloft] 100 mg PO DAILY 06/23/17 06/23/17 Unknown History Topiramate [Topamax] 25 mg PO BID 06/23/17 06/23/17 Unknown History cloNIDine [Catapres] 0.1 mg PO BID 06/23/17 06/23/17 Unknown History Active Meds: Active Medications Acetaminophen (Tylenol) 650 mg PO Q4H PRN PRN Reason: Pain MILD(1-3)/Fever >100.5/SARMIENTO Last Admin: 06/24/17 05:10 Dose: 650 mg Aspirin (Baby Aspirin) 81 mg PO QDAY [facility] Last Admin: 06/24/17 10:29 Dose: 81 mg Atorvastatin Calcium (Lipitor) 20 mg PO QHS [facility] Last Admin: 06/23/17 22:54 Dose: 20 mg Bisacodyl (Dulcolax) 10 mg [place] QDAY PRN PRN Reason: Constipation unrelieved by MOM Clonidine HCl (Catapres) 0.1 mg PO BID [facility] Last Admin: 06/24/17 10:29 Dose: 0.1 mg Docusate Sodium (Colace) 100 mg PO BID PRN PRN Reason: Constipation Enoxaparin Sodium (Lovenox) 40 mg SUB-Q QDAY [facility] Last Admin: 06/24/17 10:26 Dose: 40 mg Guaifenesin (Guaifenesin Dm Syrup) 10 ml PO Q3H PRN PRN Reason: Cough Sodium Chloride (Nacl 0.9% 1000 Ml) 1,000 mls @ 75 mls/hr IV DIRECT [facility] Last Admin: 06/24/17 13:04 Dose: 75 mls/hr Magnesium Hydroxide (Milk Of Magnesia) 30 ml PO Q4H PRN PRN Reason: Constipation Morphine Sulfate (Morphine) 2 mg IV Q4H PRN PRN Reason: Pain, Moderate (4-6) Last Admin: 06/23/17 23:59 Dose: 2 mg Olanzapine (Zyprexa) 10 mg PO DAILY [facility] Last Admin: 06/24/17 10:27 Dose: 10 mg Ondansetron HCl (Zofran) 4 mg IV Q8H PRN PRN Reason: N/V unrelieved by Reglan Pantoprazole Sodium (Protonix) 40 mg PO QDAY [facility] Last Admin: 06/24/17 10:29 Dose: 40 mg Sertraline HCl (Zoloft) 100 mg PO DAILY [facility] Last Admin: 06/24/17 10:29 Dose: 100 mg Topiramate (Topamax) 25 mg PO BID [facility] Last Admin: 06/24/17 10:28 Dose: 25 mg Physical Examination - Vital Signs Vital Signs: Vital Signs Temp Pulse Resp BP Pulse Ox 99.4 F 92 H 15 144/63 96 06/23/17 06:36 06/23/17 06:36 06/23/17 06:36 06/23/17 06:36 06/23/17 06:36 Results - Laboratory Findings CBC and BMP: 06/24/17 03:58 06/24/17 03:58 Abnormal Lab Findings: Abnormal Labs 06/23/17 06/23/17 06/24/17 07:59 07:59 03:58 [place] % (Auto) 11.1 H Tripp # 0.9 H Seg Neutrophils % 71.8 H Sodium 131 L 131 L Chloride 92.6 L Carbon Dioxide 20 L Glucose 101 H Calcium 7.0 L D Total Creatine Kinase 291 H Albumin 3.5 L LDL Cholesterol Direct 38 L HDL Cholesterol 32 L 06/24/17 03:58 [place] % (Auto) 10.5 H Tripp # Seg Neutrophils % Sodium Chloride Carbon Dioxide Glucose Calcium Total Creatine Kinase Albumin LDL Cholesterol Direct HDL Cholesterol
[2017-06-24] MEDS: MORPHINE IV PRN ×2 (17:41→21:36)
[2017-06-25] MEDS: NACL 0.9% 1000 ML 1,000 ML IV SCH ×2 (04:55→18:23)
[2017-06-25] MEDS: MORPHINE IV PRN (04:56)
--- NOTE | 2017-06-25 08:49 | Progress Note ---
Assessment and Plan Assessment and plan: --Syncope/autonomic instability Fall precautions, Physical therapy occupational therapy, monitor orthostatics --History of recurrent falls; secondary to dementia and instability PTOT, placement -- Hyponatremia; corrected, closely monitor --History of depression; on psych medications, psychiatric following --Advanced age/dementia/debility; supportive care, placement --GERD; continue Protonix --DVT prophylaxis; with Lovenox --Full code DC planning; case management , SNF placement medically stable History Interval history: Sincerely and examined medical records reviewed No new episodes of fall Patient is confused, not in acute distress Awaiting placement Hospitalist Physical - Constitutional Vitals: Temp Pulse Resp BP Pulse Ox 99 F 77 18 171/74 92 06/25/17 08:29 06/25/17 08:29 06/25/17 08:29 06/25/17 08:29 06/25/17 08:29 General appearance: Present: no acute distress, well-nourished, other (confused) - EENT Eyes: Present: PERRL, EOM intact - Neck Neck: Present: supple, normal ROM - Respiratory Respiratory effort: normal Respiratory: bilateral: diminished, negative: rales, rhonchi, wheezing - Cardiovascular Rhythm: regular Heart Sounds: Present: S1 & S2 - Extremities Extremities: no ischemia, No edema - Abdominal General gastrointestinal: soft, non-tender, non-distended, normal bowel sounds - Integumentary Integumentary: Present: clear, warm - Psychiatric Psychiatric: agitated, other (dementia) - Neurologic Neurologic: moves all extremities Results - Labs CBC & Chem 7: 06/24/17 03:58 06/24/17 03:58 Labs: Laboratory Last Values WBC 5.1 K/mm3 (4.5-11.0) 06/24/17 03:58 RBC 3.92 M/mm3 (3.65-5.03) 06/24/17 03:58 Hgb 11.8 gm/dl (10.1-14.3) 06/24/17 03:58 Hct 34.7 % (30.3-42.9) 06/24/17 03:58 MCV 89 fl (79-97) 06/24/17 03:58 MCH 30 pg (28-32) 06/24/17 03:58 MCHC 34 % (30-34) 06/24/17 03:58 RDW 14.1 % (13.2-15.2) 06/24/17 03:58 Plt Count 153 K/mm3 (140-440) 06/24/17 03:58 Lymph % (Auto) 23.9 % (13.4-35.0) 06/24/17 03:58 [place] % (Auto) 10.5 % (0.0-7.3) H 06/24/17 03:58 Eos % (Auto) 0.3 % (0.0-4.3) 06/24/17 03:58 Baso % (Auto) 1.0 % (0.0-1.8) 06/24/17 03:58 Lymph # 1.2 K/mm3 (1.2-5.4) 06/24/17 03:58 [place] # 0.5 K/mm3 (0.0-0.8) 06/24/17 03:58 Eos # 0.0 K/mm3 (0.0-0.4) 06/24/17 03:58 Baso # 0.1 K/mm3 (0.0-0.1) 06/24/17 03:58 Seg Neutrophils % 64.3 % (40.0-70.0) 06/24/17 03:58 Seg Neutrophils # 3.3 K/mm3 (1.8-7.7) 06/24/17 03:58 PT 14.0 Sec. (12.2-14.9) 06/23/17 07:59 INR 1.03 (0.87-1.13) 06/23/17 07:59 APTT 27.6 Sec. (24.2-36.6) 06/23/17 07:59 VBG pH 7.392 (7.320-7.420) 06/23/17 07:59 Sodium 131 mmol/L (137-145) L 06/24/17 03:58 Potassium 3.8 mmol/L (3.6-5.0) 06/24/17 03:58 Chloride 98.8 mmol/L (98-107) 06/24/17 03:58 Carbon Dioxide 20 mmol/L (22-30) L 06/24/17 03:58 Anion Gap 16 mmol/L 06/24/17 03:58 BUN 11 mg/dL (7-17) 06/24/17 03:58 Creatinine 0.7 mg/dL (0.7-1.2) 06/24/17 03:58 Estimated GFR > 60 ml/min 06/24/17 03:58 BUN/Creatinine Ratio 16 % 06/24/17 03:58 Glucose 89 mg/dL (65-100) 06/24/17 03:58 Lactic Acid 1.30 mmol/L (0.7-2.0) 06/23/17 07:59 Calcium 7.0 mg/dL (8.4-10.2) L D 06/24/17 03:58 Total Bilirubin 0.70 mg/dL (0.1-1.2) 06/23/17 07:59 Direct Bilirubin 0.2 mg/dL (0-0.2) 06/23/17 07:59 Indirect Bilirubin 0.5 mg/dL 06/23/17 07:59 AST 33 units/L (5-40) 06/23/17 07:59 ALT 16 units/L (7-56) 06/23/17 07:59 Alkaline Phosphatase 47 units/L (35-129) 06/23/17 07:59 Total Creatine Kinase 291 units/L (30-135) H 06/23/17 07:59 CK-MB (CK-2) 2.7 ng/mL (0.0-4.0) 06/23/17 07:59 CK-MB (CK-2) Rel Index 0.9 (0-4) 06/23/17 07:59 Troponin T < 0.010 ng/mL (0.00-0.029) 06/23/17 07:59 NT-Pro-B Natriuret Pep 875.5 pg/mL (0-900) 06/23/17 07:59 Total Protein 6.5 g/dL (6.3-8.2) 06/23/17 07:59 Albumin 3.5 g/dL (3.9-5) L 06/23/17 07:59 Albumin/Globulin Ratio 1.2 % 06/23/17 07:59 Triglycerides 75 mg/dL (2-149) 06/24/17 03:58 Cholesterol 85 mg/dL (50-199) 06/24/17 03:58 LDL Cholesterol Direct 38 mg/dL (50-130) L 06/24/17 03:58 HDL Cholesterol 32 mg/dL (40-59) L 06/24/17 03:58 Cholesterol/HDL Ratio 2.65 % 06/24/17 03:58 Urine Color Yellow (Yellow) 06/23/17 07:53 Urine Turbidity Clear (Clear) 06/23/17 07:53 Urine pH 7.0 (5.0-7.0) 06/23/17 07:53 Ur Specific [place] 1.011 (1.003-1.030) 06/23/17 07:53 Urine Protein <15 mg/dl mg/dL (Negative) 06/23/17 07:53 Urine Glucose (UA) Neg mg/dL (Negative) 06/23/17 07:53 Urine Ketones Neg mg/dL (Negative) 06/23/17 07:53 Urine Blood Neg (Negative) 06/23/17 07:53 Urine Nitrite Neg (Negative) 06/23/17 07:53 Urine Bilirubin Neg (Negative) 06/23/17 07:53 Urine Urobilinogen < 2.0 mg/dL (<2.0) 06/23/17 07:53 Ur Leukocyte Esterase Neg (Negative) 06/23/17 07:53 Urine WBC (Auto) 1.0 /HPF (0.0-6.0) 06/23/17 07:53 Urine RBC (Auto) 1.0 /HPF (0.0-6.0) 06/23/17 07:53 Amorphous Crystals Few 06/23/17 07:53 Urine Mucus Few /HPF 06/23/17 07:53
--- NOTE | 2017-06-25 10:36 | Consultation ---
History of Present Illness Consult date: 06/25/17 History of present illness: do not see evidence of stroke on the MRI there is great deal of atrophy seen on the MRI which is suggestive of dementaia still suspect seizure could have caused syncope spoke to daughter she works at [employer] I did detect some features of PARKINSONIAN RIGIDITY and cogwheeling this can be feature of the medication zyprexa will ask Debi if he has notes gait changes typical of PD Past History Past Medical History: GERD, hypertension Past Surgical History: bowel surgery, Other (Colostomy and than a reversal) Social history: Lives alone Family history: denies: diabetes, hypertension Medications and Allergies Allergies Allergy/AdvReac Type Severity Reaction Status Date / Time lorazepam [From Ativan] Allergy Unknown Unknown Verified 06/19/17 16:48 Home Medications Medication Instructions Recorded Confirmed Last Taken Type Docusate Sodium [Colace] 100 mg PO BID PRN #20 capsule 06/19/17 06/23/17 Unknown Rx Aspirin [Aspirin BABY CHEW TAB] 81 mg PO QDAY 06/23/17 06/23/17 Unknown History AtorvaSTATin [Lipitor] 20 mg PO QHS 06/23/17 06/23/17 Unknown History HYDROcodone/APAP 7.5-325 [Dale 1 each PO Q6HR PRN 06/23/17 06/23/17 Unknown History 7.5/325] Magnesium Citrate [Citrate of 400 ml PO NOW 06/23/17 06/23/17 Unknown History Magnesia] Magnesium Oxide [Magnesium] 400 mg PO QDAY 06/23/17 06/23/17 Unknown History Olanzapine [OLANZapine] 10 mg PO DAILY 06/23/17 06/23/17 Unknown History Omeprazole [Omeprazole] 40 mg PO BID 06/23/17 06/23/17 Unknown History Pantoprazole [Protonix TAB] 40 mg PO QDAY 06/23/17 06/23/17 Unknown History Riboflavin (Vitamin B2) 400 mg PO DAILY 06/23/17 06/23/17 Unknown History [Riboflavin] Sertraline [Zoloft] 100 mg PO DAILY 06/23/17 06/23/17 Unknown History Topiramate [Topamax] 25 mg PO BID 06/23/17 06/23/17 Unknown History cloNIDine [Catapres] 0.1 mg PO BID 11/30/17 11/30/17 Unknown History Active Meds: Active Medications Acetaminophen (Tylenol) 650 mg PO Q4H PRN PRN Reason: Pain MILD(1-3)/Fever >100.5/SARMIENTO Last Admin: 06/24/17 05:10 Dose: 650 mg Aspirin (Baby Aspirin) 81 mg PO QDAY [facility] Last Admin: 06/24/17 10:29 Dose: 81 mg Atorvastatin Calcium (Lipitor) 20 mg PO QHS [facility] Last Admin: 06/24/17 21:30 Dose: 20 mg Bisacodyl (Dulcolax) 10 mg CA QDAY PRN PRN Reason: Constipation unrelieved by MOM Clonidine HCl (Catapres) 0.1 mg PO BID [facility] Last Admin: 06/24/17 21:30 Dose: 0.1 mg Docusate Sodium (Colace) 100 mg PO BID PRN PRN Reason: Constipation Enoxaparin Sodium (Lovenox) 40 mg SUB-Q QDAY [facility] Last Admin: 06/24/17 10:26 Dose: 40 mg Guaifenesin (Guaifenesin Dm Syrup) 10 ml PO Q3H PRN PRN Reason: Cough Sodium Chloride (Nacl 0.9% 1000 Ml) 1,000 mls @ 75 mls/hr IV DIRECT [facility] Last Admin: 06/25/17 04:55 Dose: 75 mls/hr Magnesium Hydroxide (Milk Of Magnesia) 30 ml PO Q4H PRN PRN Reason: Constipation Morphine Sulfate (Morphine) 2 mg IV Q4H PRN PRN Reason: Pain, Moderate (4-6) Last Admin: 06/25/17 04:56 Dose: 2 mg Olanzapine (Zyprexa) 10 mg PO DAILY [facility] Last Admin: 06/24/17 10:27 Dose: 10 mg Ondansetron HCl (Zofran) 4 mg IV Q8H PRN PRN Reason: N/V unrelieved by Reglan Pantoprazole Sodium (Protonix) 40 mg PO QDAY [facility] Last Admin: 06/24/17 10:29 Dose: 40 mg Sertraline HCl (Zoloft) 100 mg PO DAILY [facility] Last Admin: 06/24/17 10:29 Dose: 100 mg Topiramate (Topamax) 25 mg PO BID [facility] Last Admin: 06/24/17 21:31 Dose: 25 mg Physical Examination - Vital Signs Vital Signs: Vital Signs Temp Pulse Resp BP Pulse Ox 99.4 F 92 H 15 144/63 96 06/23/17 06:36 06/23/17 06:36 06/23/17 06:36 06/23/17 06:36 06/23/17 06:36 Results - Laboratory Findings CBC and BMP: 06/24/17 03:58 06/24/17 03:58 Abnormal Lab Findings: Abnormal Labs 06/23/17 06/23/17 06/24/17 07:59 07:59 03:58 [place] % (Auto) 11.1 H [place] # 0.9 H Seg Neutrophils % 71.8 H Sodium 131 L 131 L Chloride 92.6 L Carbon Dioxide 20 L Glucose 101 H Calcium 7.0 L D Total Creatine Kinase 291 H Albumin 3.5 L LDL Cholesterol Direct 38 L HDL Cholesterol 32 L 06/24/17 03:58 [place] % (Auto) 10.5 H [place] # Seg Neutrophils % Sodium Chloride Carbon Dioxide Glucose Calcium Total Creatine Kinase Albumin LDL Cholesterol Direct HDL Cholesterol
[2017-06-25] MEDS: CATAPRES PO SCH ×2 (11:44→23:37)
[2017-06-25] MEDS: ZOLOFT PO SCH (11:44)
[2017-06-25] MEDS: PROTONIX PO SCH (11:44)
[2017-06-25] MEDS: TOPAMAX PO SCH ×2 (11:44→23:37)
[2017-06-25] MEDS: BABY ASPIRIN PO SCH (11:45)
[2017-06-25] MEDS: LOVENOX SUB-Q SCH (11:46)
[2017-06-25] MEDS: TYLENOL PO PRN ×2 (15:17→23:43)
--- NOTE | 2017-06-25 18:13 | Consultation ---
HISTORY OF PRESENT ILLNESS: This is a 81-year-old white female that is admitted to [facility] following a syncopal episode. The patient had been undergoing declining health for several months. She lives by herself in an apartment at [facility]; therefore, her day to day activity is not really well followed by family members, but is interesting in speaking with the daughter who works as a nurse's aide at [employer] that she had been less active eating less, losing weight and generally been diminished level of function for several months. Some of this may have been related to intercurrent depression. I do not have a very accurate history as to what antidepressant medications that she had been taking months ago. I did notice that recently she has been taking Zyprexa and other mood stabilizers and has been experiencing periods of increased lethargy and reduced communicative state for the last several weeks. The syncopal episode, she had was not witnessed by her daughter. She has been weak and unstable in her walking, tends to fall and is off balance most of the time based on observers. There is no prior history of stroke. She has a long history of having GI tract problems. I did review over her MRI scan of the brain, which shows volume loss with chronic white matter changes and there are no acute processes such as stroke. My personal review of the MR does show what I would consider to be atrophy which is more profound than I would expect to see for stated age, and she has to me loss, particularly of cerebral volume within the temporal lobes and parietal lobes as well, although there is a slightly large with the ventricular system, I do not think this constitutes hydrocephalus. Examination shows the patient to be sleepy, a little less responsive than I would expect to see. She has some rigidity and cogwheeling of her extremities. I am not sure that this exactly constitutes the level that I see in Parkinson's disease. I do not appreciate the fact that she has masked facies. Gait will have to be observed later to make further determinations. IMPRESSION: This patient based on my initial impression does not have features that would overtly suggest that she has Parkinson's. I might wonder about this. The question is her response to medication and whether she has underlying depression and/or depression related to early stages of Alzheimer's. I think that the atrophy that I see is slightly more than I would expect for her stated age, and I will speak with Dr. Carrera to see if he has noticed on an outpatient basis or from previously examining her, features that would suggest progressive Parkinson's. At this age, it would be very late onset. The more likely issue is simply degenerative disease with early dementia. I do not see evidence of acute stroke, however. Possibility of her having a seizure still remains to be considered given her underlying neurological state seizures might be part of the differential diagnosis. JOB# [id number] SOBEIDA/JOHN
[2017-06-25] MEDS ORDERED: APRESOLINE IV PRN (18:35)
[2017-06-25] MEDS: APRESOLINE PO SCH (23:37)
[2017-06-26] MEDS: APRESOLINE PO SCH ×3 (06:02→21:07)
[2017-06-26] MEDS: GUAIFENESIN DM SYRUP PO PRN ×2 (06:03→21:07)
[2017-06-26] MEDS: MILK OF MAGNESIA PO PRN (06:51)
[2017-06-26] MEDS: MORPHINE IV PRN (06:51)
[2017-06-26] MEDS: COLACE PO PRN (06:51)
[2017-06-26] MEDS: PROTONIX PO SCH (09:20)
[2017-06-26] MEDS: LOVENOX SUB-Q SCH (09:21)
[2017-06-26] MEDS: CATAPRES PO SCH ×2 (09:21→21:07)
[2017-06-26] MEDS: TOPAMAX PO SCH ×2 (09:21→21:07)
[2017-06-26] MEDS: BABY ASPIRIN PO SCH (09:21)
[2017-06-26] MEDS: ZOLOFT PO SCH (09:21)
[2017-06-26] MEDS: NACL 0.9% 1000 ML 1,000 ML IV SCH (10:49)
--- NOTE | 2017-06-26 12:34 | Progress Note ---
Assessment and Plan - Patient Problems (1) Autonomic dysfunction Current Visit: Yes Status: Acute Plan to address problem: Most likely etiology of the syncope. PT OT fall precautions longterm facility pending case management. (2) Syncopal episodes Current Visit: Yes Status: Acute Qualifiers: Syncope type: unspecified Qualified Code(s): R55 - Syncope and collapse Plan to address problem: Recurrent falls and near syncopal episodes. 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 (3) Dementia Current Visit: Yes Status: Acute Plan to address problem: Awaiting placement. (4) GERD (gastroesophageal reflux disease) Current Visit: Yes Status: Acute (5) Obesity Current Visit: Yes Status: Acute History Interval history: No new concerns today. Stable dementia. Hospital course unremarkable over p.m. Still awaiting longterm facility placement. Hospitalist Physical - Constitutional Vitals: Temp Pulse Resp BP Pulse Ox 98.6 F 72 18 152/63 97 06/26/17 07:50 06/26/17 09:21 06/26/17 07:50 06/26/17 09:21 06/26/17 10:00 General appearance: Present: no acute distress, well-nourished, other (confused) - EENT Eyes: Present: PERRL, EOM intact ENT: hearing intact, clear oral mucosa, dentition normal - Neck Neck: Present: supple, normal ROM - Respiratory Respiratory effort: normal Respiratory: bilateral: CTA - Cardiovascular Rhythm: regular - Extremities Extremities: no ischemia, pulses symmetrical, normal temperature, normal color Extremity abnormal: edema Peripheral Pulses: within normal limits - Abdominal General gastrointestinal: soft, non-tender, non-distended - Psychiatric Psychiatric: cooperative - Neurologic Neurologic: other (poor cognition) Results - Labs CBC & Chem 7: 06/24/17 03:58 06/24/17 03:58 Labs: Laboratory Last Values WBC 5.1 K/mm3 (4.5-11.0) 06/24/17 03:58 RBC 3.92 M/mm3 (3.65-5.03) 06/24/17 03:58 Hgb 11.8 gm/dl (10.1-14.3) 06/24/17 03:58 Hct 34.7 % (30.3-42.9) 06/24/17 03:58 MCV 89 fl (79-97) 06/24/17 03:58 MCH 30 pg (28-32) 06/24/17 03:58 MCHC 34 % (30-34) 06/24/17 03:58 RDW 14.1 % (13.2-15.2) 06/24/17 03:58 Plt Count 153 K/mm3 (140-440) 06/24/17 03:58 Lymph % (Auto) 23.9 % (13.4-35.0) 06/24/17 03:58 [place] % (Auto) 10.5 % (0.0-7.3) H 06/24/17 03:58 Eos % (Auto) 0.3 % (0.0-4.3) 06/24/17 03:58 Baso % (Auto) 1.0 % (0.0-1.8) 06/24/17 03:58 Lymph # 1.2 K/mm3 (1.2-5.4) 06/24/17 03:58 [place] # 0.5 K/mm3 (0.0-0.8) 06/24/17 03:58 Eos # 0.0 K/mm3 (0.0-0.4) 06/24/17 03:58 Baso # 0.1 K/mm3 (0.0-0.1) 06/24/17 03:58 Seg Neutrophils % 64.3 % (40.0-70.0) 06/24/17 03:58 Seg Neutrophils # 3.3 K/mm3 (1.8-7.7) 06/24/17 03:58 PT 14.0 Sec. (12.2-14.9) 06/23/17 07:59 INR 1.03 (0.87-1.13) 06/23/17 07:59 APTT 27.6 Sec. (24.2-36.6) 06/23/17 07:59 VBG pH 7.392 (7.320-7.420) 06/23/17 07:59 Sodium 131 mmol/L (137-145) L 06/24/17 03:58 Potassium 3.8 mmol/L (3.6-5.0) 06/24/17 03:58 Chloride 98.8 mmol/L (98-107) 06/24/17 03:58 Carbon Dioxide 20 mmol/L (22-30) L 06/24/17 03:58 Anion Gap 16 mmol/L 06/24/17 03:58 BUN 11 mg/dL (7-17) 06/24/17 03:58 Creatinine 0.7 mg/dL (0.7-1.2) 06/24/17 03:58 Estimated GFR > 60 ml/min 06/24/17 03:58 BUN/Creatinine Ratio 16 % 06/24/17 03:58 Glucose 89 mg/dL (65-100) 06/24/17 03:58 Lactic Acid 1.30 mmol/L (0.7-2.0) 06/23/17 07:59 Calcium 7.0 mg/dL (8.4-10.2) L D 06/24/17 03:58 Total Bilirubin 0.70 mg/dL (0.1-1.2) 06/23/17 07:59 Direct Bilirubin 0.2 mg/dL (0-0.2) 06/23/17 07:59 Indirect Bilirubin 0.5 mg/dL 06/23/17 07:59 AST 33 units/L (5-40) 06/23/17 07:59 ALT 16 units/L (7-56) 06/23/17 07:59 Alkaline Phosphatase 47 units/L (35-129) 06/23/17 07:59 Total Creatine Kinase 291 units/L (30-135) H 06/23/17 07:59 CK-MB (CK-2) 2.7 ng/mL (0.0-4.0) 06/23/17 07:59 CK-MB (CK-2) Rel Index 0.9 (0-4) 06/23/17 07:59 Troponin T < 0.010 ng/mL (0.00-0.029) 06/23/17 07:59 NT-Pro-B Natriuret Pep 875.5 pg/mL (0-900) 06/23/17 07:59 Total Protein 6.5 g/dL (6.3-8.2) 06/23/17 07:59 Albumin 3.5 g/dL (3.9-5) L 06/23/17 07:59 Albumin/Globulin Ratio 1.2 % 06/23/17 07:59 Triglycerides 75 mg/dL (2-149) 06/24/17 03:58 Cholesterol 85 mg/dL (50-199) 06/24/17 03:58 LDL Cholesterol Direct 38 mg/dL (50-130) L 06/24/17 03:58 HDL Cholesterol 32 mg/dL (40-59) L 06/24/17 03:58 Cholesterol/HDL Ratio 2.65 % 06/24/17 03:58 Urine Color Yellow (Yellow) 06/23/17 07:53 Urine Turbidity Clear (Clear) 06/23/17 07:53 Urine pH 7.0 (5.0-7.0) 06/23/17 07:53 Ur Specific [place] 1.011 (1.003-1.030) 06/23/17 07:53 Urine Protein <15 mg/dl mg/dL (Negative) 06/23/17 07:53 Urine Glucose (UA) Neg mg/dL (Negative) 06/23/17 07:53 Urine Ketones Neg mg/dL (Negative) 06/23/17 07:53 Urine Blood Neg (Negative) 06/23/17 07:53 Urine Nitrite Neg (Negative) 06/23/17 07:53 Urine Bilirubin Neg (Negative) 06/23/17 07:53 Urine Urobilinogen < 2.0 mg/dL (<2.0) 06/23/17 07:53 Ur Leukocyte Esterase Neg (Negative) 06/23/17 07:53 Urine WBC (Auto) 1.0 /HPF (0.0-6.0) 06/23/17 07:53 Urine RBC (Auto) 1.0 /HPF (0.0-6.0) 06/23/17 07:53 Amorphous Crystals Few 06/23/17 07:53 Urine Mucus Few /HPF 06/23/17 07:53
[2017-06-26] MEDS: TYLENOL PO PRN (21:07)
[2017-06-27] MEDS: NACL 0.9% 1000 ML 1,000 ML IV SCH (02:57)
[2017-06-27] MEDS: MORPHINE IV PRN (04:15)
[2017-06-27] MEDS: APRESOLINE PO SCH ×2 (05:42→15:23)
--- NOTE | 2017-06-27 08:59 | Progress Note ---
Assessment and Plan - Patient Problems (1) Autonomic dysfunction Current Visit: Yes Status: Acute Plan to address problem: Most likely etiology of the syncope. PT OT fall precautions [facility] facility pending case management. No changes awaiting placement. (2) Syncopal episodes Current Visit: Yes Status: Acute Qualifiers: Syncope type: unspecified Qualified Code(s): R55 - Syncope and collapse Plan to address problem: No syncopal episodes at present. No dizziness. Patient does have autonomic dysfunction. Plan is to strengthen patient in the [facility] facility environment and see if we can make progress with her falling. At the beginning of lower extremity and pelvic muscles. (3) Dementia Current Visit: Yes Status: Acute Plan to address problem: Awaiting placement. Patient does maintain some cognition. It also be minimal cognitive impairment (4) GERD (gastroesophageal reflux disease) Current Visit: Yes Status: Acute Plan to address problem: Nausea and vomiting no abdominal pain no reflux at this particular time. (5) Obesity Current Visit: Yes Status: Acute Plan to address problem: Diet dietary modifications. History Interval history: Patient in bed comfortable examined with nurse. Aspirin course uncomplicated over p.m. still awaiting placement. States she's hurting all over Hospitalist Physical - Constitutional Vitals: Temp Pulse Resp BP Pulse Ox 97.6 F 95 H 18 135/61 91 06/27/17 04:54 06/26/17 20:35 06/27/17 04:54 06/27/17 04:54 06/26/17 20:35 General appearance: Present: no acute distress, well-nourished, other (confused) - EENT Eyes: Present: PERRL, EOM intact ENT: hearing intact, clear oral mucosa - Neck Neck: Present: supple, normal ROM - Respiratory Respiratory: bilateral: CTA - Cardiovascular Rhythm: regular Heart Sounds: Present: S1 & S2 - Extremities Extremities: no ischemia, pulses intact, pulses symmetrical, No edema, normal temperature Peripheral Pulses: within normal limits - Abdominal General gastrointestinal: non-tender, non-distended, normal bowel sounds - Psychiatric Psychiatric: appropriate mood/affect, cooperative - Neurologic Neurologic: CNII-XII intact, no focal deficits Results - Labs CBC & Chem 7: 06/24/17 03:58 06/24/17 03:58 Labs: Laboratory Last Values WBC 5.1 K/mm3 (4.5-11.0) 06/24/17 03:58 RBC 3.92 M/mm3 (3.65-5.03) 06/24/17 03:58 Hgb 11.8 gm/dl (10.1-14.3) 06/24/17 03:58 Hct 34.7 % (30.3-42.9) 06/24/17 03:58 MCV 89 fl (79-97) 06/24/17 03:58 MCH 30 pg (28-32) 06/24/17 03:58 MCHC 34 % (30-34) 06/24/17 03:58 RDW 14.1 % (13.2-15.2) 06/24/17 03:58 Plt Count 153 K/mm3 (140-440) 06/24/17 03:58 Lymph % (Auto) 23.9 % (13.4-35.0) 06/24/17 03:58 [place] % (Auto) 10.5 % (0.0-7.3) H 06/24/17 03:58 Eos % (Auto) 0.3 % (0.0-4.3) 06/24/17 03:58 Baso % (Auto) 1.0 % (0.0-1.8) 06/24/17 03:58 Lymph # 1.2 K/mm3 (1.2-5.4) 06/24/17 03:58 [place] # 0.5 K/mm3 (0.0-0.8) 06/24/17 03:58 Eos # 0.0 K/mm3 (0.0-0.4) 06/24/17 03:58 Baso # 0.1 K/mm3 (0.0-0.1) 06/24/17 03:58 Seg Neutrophils % 64.3 % (40.0-70.0) 06/24/17 03:58 Seg Neutrophils # 3.3 K/mm3 (1.8-7.7) 06/24/17 03:58 PT 14.0 Sec. (12.2-14.9) 06/23/17 07:59 INR 1.03 (0.87-1.13) 06/23/17 07:59 APTT 27.6 Sec. (24.2-36.6) 06/23/17 07:59 VBG pH 7.392 (7.320-7.420) 06/23/17 07:59 Sodium 131 mmol/L (137-145) L 06/24/17 03:58 Potassium 3.8 mmol/L (3.6-5.0) 06/24/17 03:58 Chloride 98.8 mmol/L (98-107) 06/24/17 03:58 Carbon Dioxide 20 mmol/L (22-30) L 06/24/17 03:58 Anion Gap 16 mmol/L 06/24/17 03:58 BUN 11 mg/dL (7-17) 06/24/17 03:58 Creatinine 0.7 mg/dL (0.7-1.2) 06/24/17 03:58 Estimated GFR > 60 ml/min 06/24/17 03:58 BUN/Creatinine Ratio 16 % 06/24/17 03:58 Glucose 89 mg/dL (65-100) 06/24/17 03:58 Lactic Acid 1.30 mmol/L (0.7-2.0) 06/23/17 07:59 Calcium 7.0 mg/dL (8.4-10.2) L D 06/24/17 03:58 Total Bilirubin 0.70 mg/dL (0.1-1.2) 06/23/17 07:59 Direct Bilirubin 0.2 mg/dL (0-0.2) 06/23/17 07:59 Indirect Bilirubin 0.5 mg/dL 06/23/17 07:59 AST 33 units/L (5-40) 06/23/17 07:59 ALT 16 units/L (7-56) 06/23/17 07:59 Alkaline Phosphatase 47 units/L (35-129) 06/23/17 07:59 Total Creatine Kinase 291 units/L (30-135) H 06/23/17 07:59 CK-MB (CK-2) 2.7 ng/mL (0.0-4.0) 06/23/17 07:59 CK-MB (CK-2) Rel Index 0.9 (0-4) 06/23/17 07:59 Troponin T < 0.010 ng/mL (0.00-0.029) 06/23/17 07:59 NT-Pro-B Natriuret Pep 875.5 pg/mL (0-900) 06/23/17 07:59 Total Protein 6.5 g/dL (6.3-8.2) 06/23/17 07:59 Albumin 3.5 g/dL (3.9-5) L 06/23/17 07:59 Albumin/Globulin Ratio 1.2 % 06/23/17 07:59 Triglycerides 75 mg/dL (2-149) 06/24/17 03:58 Cholesterol 85 mg/dL (50-199) 06/24/17 03:58 LDL Cholesterol Direct 38 mg/dL (50-130) L 06/24/17 03:58 HDL Cholesterol 32 mg/dL (40-59) L 06/24/17 03:58 Cholesterol/HDL Ratio 2.65 % 06/24/17 03:58 Urine Color Yellow (Yellow) 06/23/17 07:53 Urine Turbidity Clear (Clear) 06/23/17 07:53 Urine pH 7.0 (5.0-7.0) 06/23/17 07:53 Ur Specific [place] 1.011 (1.003-1.030) 06/23/17 07:53 Urine Protein <15 mg/dl mg/dL (Negative) 06/23/17 07:53 Urine Glucose (UA) Neg mg/dL (Negative) 06/23/17 07:53 Urine Ketones Neg mg/dL (Negative) 06/23/17 07:53 Urine Blood Neg (Negative) 06/23/17 07:53 Urine Nitrite Neg (Negative) 06/23/17 07:53 Urine Bilirubin Neg (Negative) 06/23/17 07:53 Urine Urobilinogen < 2.0 mg/dL (<2.0) 06/23/17 07:53 Ur Leukocyte Esterase Neg (Negative) 06/23/17 07:53 Urine WBC (Auto) 1.0 /HPF (0.0-6.0) 06/23/17 07:53 Urine RBC (Auto) 1.0 /HPF (0.0-6.0) 06/23/17 07:53 Amorphous Crystals Few 06/23/17 07:53 Urine Mucus Few /HPF 06/23/17 07:53
[2017-06-27] MEDS: COLACE PO PRN (10:15)
[2017-06-27] MEDS: CATAPRES PO SCH (10:15)
[2017-06-27] MEDS: LOVENOX SUB-Q SCH (10:15)
[2017-06-27] MEDS: TYLENOL PO PRN (10:16)
[2017-06-27] MEDS: ZOLOFT PO SCH (10:16)
[2017-06-27] MEDS: MILK OF MAGNESIA PO PRN (10:19)
[2017-06-27] MEDS: GUAIFENESIN DM SYRUP PO PRN (10:20)
[2017-06-27] MEDS: BABY ASPIRIN PO SCH (10:20)
[2017-06-27] MEDS: PROTONIX PO SCH (10:20)
[2017-06-27] MEDS: TOPAMAX PO SCH (10:21)
--- NOTE | 2017-06-27 11:53 | Discharge Summary ---
Providers - Providers Date of Admission: 06/23/17 10:56 Date of discharge: 06/27/17 Attending physician: LUMA CERNA 06/23/17 11:06 Consult to Dietitian/Nutrition [CONS] Routine Physician Instructions: Reason For Exam: Reason for Consult: Malnutrition 06/23/17 14:57 Physical Therapy Evaluation and Treat [CONS] Routine Comment: Reason For Exam: syncope 06/23/17 15:39 Consult to Physician [CONS] Routine Consulting Provider: FER FELDMAN Reason For Exam: Syncope Place consult to:: office Notified:: yes If yes, spoke with:: j luis Time called:: 17:30 Comment:: ho Primary care physician: COAT FINISHER Hospitalization Condition: Fair Pertinent studies: MRI would show mild volume loss and chronic white matter disease no acute changes Cervical spine CT showed mild spondylosis Cardiogram ejection fraction 65% Hospital course: Patient presented with generalized pain after multiple falls. Workup for falls negative was thought to be secondary to autonomic neuropathy. Patient stabilizes [facility] rehabilitation for further strengthening of proximal muscles to prevent falls in strengthening from disability. He should also have hypernatremia and metabolic encephalopathy that hadn't resolved. Disposition: DC-30 STILL A PATIENT - Discharge Diagnoses (1) Autonomic dysfunction Status: Acute (2) Syncopal episodes Status: Acute Qualifiers: Syncope type: unspecified Qualified Code(s): R55 - Syncope and collapse (3) Dementia Status: Acute (4) GERD (gastroesophageal reflux disease) Status: Acute (5) Obesity Status: Acute Core Measure Documentation - Palliative Care Palliative Care/ Comfort Measures: Not Applicable - Core Measures Any of the following diagnoses?: none Exam - Constitutional Vitals: Temp Pulse Resp BP Pulse Ox 98.5 F 76 18 168/64 93 06/27/17 07:30 06/27/17 07:30 06/27/17 10:16 06/27/17 07:30 06/27/17 07:30 General appearance: Present: no acute distress, well-nourished - EENT Eyes: Present: PERRL ENT: hearing intact, clear oral mucosa - Neck Neck: Present: supple, normal ROM - Respiratory Respiratory effort: normal Respiratory: bilateral: CTA - Cardiovascular Heart Sounds: Present: S1 & S2. Absent: rub, click - Extremities Extremities: pulses symmetrical, No edema Peripheral Pulses: within normal limits - Abdominal General gastrointestinal: Present: soft, non-tender, non-distended, normal bowel sounds Female genitourinary: Present: normal - Integumentary Integumentary: Present: clear, warm, dry - Musculoskeletal Musculoskeletal: strength equal bilaterally, generalized weakness, other ( osteoarthritis.) - Psychiatric Psychiatric: appropriate mood/affect, intact judgment & insight - Neurologic Neurologic: CNII-XII intact, moves all extremities Plan Activity: fall precautions Weight Bearing Status: Weight Bear as Tolerated Diet: low fat Special Instructions: record daily BP diary, physical therapy Follow up with: PRIMARY CARE,MD [Primary Care Provider] - 3-5 Days Prescriptions: Acetaminophen [Acetaminophen TAB] 650 mg PO Q4H PRN #30 tablet PRN Reason: Pain MILD(1-3)/Fever >100.5/SARMIENTO Aspirin [Aspirin BABY CHEW TAB] 81 mg PO QDAY #30 tab.chew AtorvaSTATin [Lipitor] 20 mg PO QHS #30 tablet cloNIDine [Catapres] 0.1 mg PO BID #60 tablet Docusate Sodium [Colace CAP] 100 mg PO BID PRN #20 capsule PRN Reason: Constipation HYDROcodone/APAP 7.5-325 [[place] 7.5-325 mg TAB] 1 each PO Q6HR PRN #60 tablet PRN Reason: Pain Olanzapine [OLANZapine] 10 mg PO DAILY #30 tablet Pantoprazole [Protonix TAB] 40 mg PO QDAY #30 tablet Riboflavin (Vitamin B2) [Riboflavin] 400 mg PO DAILY #30 tablet Sertraline [Zoloft] 100 mg PO DAILY #30 tablet Topiramate [Topamax] 25 mg PO BID #30 tablet
[2017-06-27 15:15] VITALS: BP 145/48
--- NOTE | 2017-06-30 08:03 | Vascular Lab Report ---
CAROTID DUPLEX STUDY: RIGHT PSVEDV CCA [id number] CCA [id number] ICA PROX:[id number] ICA MID:[id number] ICA DIST:[id number] ECA: 144 VERT: 65 9 LEFT PSVEDV CCA PROX:[id number] CCA DIST:[id number] ICA PROX:[id number] ICA MID:[id number] ICA DIST:9426 ECA: 150 VERT: 51 9 REASON FOR EXAM: Carotid artery stenosis/syncope. COMMENTS ON THE RIGHT: Doppler frequency analysis is consistent with 16 to 49 percent diameter reduction of the internal carotid artery. Minimal amount of plaque is seen. The common carotid artery is patent. The external carotid artery is patent. The vertebral artery has antegrade flow. COMMENTS ON THE LEFT: Doppler frequency analysis is consistent with 16 to 49 percent diameter reduction of the internal carotid artery. Minimal amount of plaque is seen. The common carotid artery is patent. The external carotid artery is patent. The vertebral artery has antegrade flow. IMPRESSION: Less than 50% diameter reduction in the internal carotid arteries bilaterally. Consider repeat carotid artery duplex in 12 months.
--- NOTE | 2017-07-01 14:19 | Query- Present on Admission ---
Estuardo Kong____Jesus Date:____07/01/17 Perishable Fruit Inspector/CDS: Babs / Fernando Phone#:__[phone] Exercise your independent professional judgment when responding to this query. Questions asked do not imply a particular answer is desired or expected. We greatly appreciate your clarification on this issue. Clinical Documentation States: 81 year old female was admitted on 06/23/17 The discharge summary (Dr. Lee ) states " Patient presented with generalized pain after multiple falls. He should also have hypernatremia and metabolic encephalopathy that hadn't resolved. " Clinical Findings Show: Based on the above clinical scenario and your knowledge of the patient's case please clarify if the diagnosis stated below was present on admission: Diagnosis: ____metabolic encephalopathy Present on admission : [ ] Yes (Y) [ ] Clinically undeterminable(W) [ ] No (N) Please also document response in your Progress Notes and/or Discharge Summary and indicate if the condition was present on admission. MTDD
--- NOTE | 2017-07-28 10:55 | Query- Present on Admission ---
Dear Date:__07/01/17 Engraver/CDS:__Luna/ Fernando Phone#: [phone] Exercise your independent professional judgment when responding to this query. Questions asked do not imply a particular answer is desired or expected. We greatly appreciate your clarification on this issue. Clinical Documentation States: 81 year old female was admitted on 06/23/17. The discharge summary( Dr. Lee) states" Patient presented with generalized pain after multiple falls. He should also have hypernatremia and metabolic encephalopathy that hadn't resolved" Clinical Findings Show: Based on the above clinical scenario and your knowledge of the patient's case please clarify if the diagnosis stated below was present on admission: Diagnosis: __metabolic encephalopathy Present on admission : [ x] Yes (Y) [ ] Clinically undeterminable(W) [ ] No(N) Please also document response in your Progress Notes and/or Discharge Summary and indicate if the condition was present on admission. MTDD
== END 2017-06-27 16:45 | DRG 640 ==
LOC: ED 06:31 → 3A 10:56 → 2B-ACE 12:39
PROVIDERS: ADMIT Internal Medicine; ATTEND Internal Medicine
DX: E87.1 Hypo-osmolality and hyponatremia (principal); G93.41 Metabolic encephalopathy; F32.1 Major depressive disorder, single episode, moderate; G90.9 Disorder of the autonomic nervous system, unspecified; E78.5 Hyperlipidemia, unspecified; R53.81 Other malaise; K21.9 Gastro-esophageal reflux disease without esophagitis; E66.9 Obesity, unspecified; Z68.27 Body mass index [BMI] 27.0-27.9, adult; Z88.8 Allergy status to other drugs, medicaments and biological substances; I10 Essential (primary) hypertension; D72.825 Bandemia; Z79.82 Long term (current) use of aspirin; Z79.899 Other long term (current) drug therapy; F03.90 Unspecified dementia, unspecified severity, without behavioral disturbance, psychotic disturbance, mood disturbance, and anxiety
CPT/HCPCS: 36415; 70450; 70551; 71010; 72125; 80048; 80061; 80074; 81001; 82140; 82550; 82553; 82805; 83880; 84484; 85025; 85610; 85730; 87040; 87086; 93005; 93010; 93306; 93880; 99285; A9270-GY; G8978-GP; G8979-GP; J1650; J2270; J7030; J7040